=== PATIENT | male | born 1975 | race Two or more races ===

== ENCOUNTER → 2024-03-22 | Outpatient (CLI) | payer BC, SELFPAY ==
[2024-03-22 11:08] LABS: Collection Type, Urine Clean Catch
[2024-03-22 11:36] LABS: Basophils % (Auto) 1 % (0-2.5); Eosinophils # (Auto) 0.2 Thou/mm3 (0.0-0.5); Eosinophils % (Auto) 3 % (0-10); Hematocrit 26.7 % (41.0-53.0); Hemoglobin 9.2 g/dL (13.5-16.0); Immature Granulocytes % (Auto) 0 % (0-0); Immature Granulocytes Auto 0.02 Thou/mm3 (0.00-0.00); Lymphocytes # (Auto) 1.4 Thou/mm3 (1.0-4.8); Lymphocytes % (Auto) 22 % (10-50); Mean Corpuscular HGB Conc 34.5 g/dl (31.0-37.0); Mean Corpuscular Hemoglobin 28.2 pg (25.0-35.0); Mean Corpuscular Volume 82 fL (80-100); Monocytes # (Auto) 0.4 Thou/mm3 (0.0-0.8); Monocytes % (Auto) 6 % (0-12); Neutrophils # (Auto) 4.3 Thou/mm3 (1.8-7.7); Neutrophils % (Auto) 69 % (37-80); Nucleated Red Blood Cell % 0 /100 WBC (0); Platelet Count 237 Thou/mm3 (140-440); RDW Standard Deviation 38.6 fL (35.1-43.9); Red Blood Count 3.26 Miln/mm3 (4.50-5.90); White Blood Count 6.3 Thou/mm3 (3.8-10.6)
[2024-03-22 11:44] LABS: Glucose Estimated Average 117 mg/dL (80-131); Hemoglobin A1C 5.7 % Hgb (4.8-6.0)
[2024-03-22 11:47] LABS: Parathyroid Hormone Intact 315.6 pg/ml (18.5-88.0)
[2024-03-22 11:49] LABS: Albumin, Serum 3.6 gm/dL (3.5-5.0); Anion Gap 7 (7-16); BUN/Creatinine Ratio 14 Ratio (12-20); Blood Urea Nitrogen 56 mg/dL (9-23); Calcium 8.4 mg/dL (8.3-10.6); Calcium (Corrected) 8.7 mg/dL (8.5-10.1); Chloride 112 mMol/L (98-107); Creatinine (Component) 4.1 mg/dL (0.6-1.3); Glucose 103 mg/dL (74-106); Osmolality,Calculated 298 (275-295); Potassium 4.8 mMol/L (3.4-5.1); Sodium 142 mMol/L (136-145); eGFR 17 See Note
[2024-03-22 11:51] LABS: Vitamin D 25 Hydroxy Total 17.6 ng/mL (7.3-40.2)
[2024-03-22 11:53] LABS: Amorphous Crystals,Urine Present (Absent); Bacteria,Urine Rare; Bilirubin,Urine Negative (Negative); Blood,Urine 1+ (Negative); Clarity,Urine Clear (Clear/Hazy); Color,Urine Lt-Yellow (Lt Yel-Yel); Glucose, Urine Trace (Negative); Ketones,Urine Negative (Negative); Leukocyte Esterase,Urine Negative (Negative); Nitrite,Urine Negative (Negative); PH,Urine 6.5 (5.0-7.0); Protein,Urine 3+ (Neg - Trace); RBC,Urine 5 /hpf (0-3); Specific Gravity,Urine 1.013 (1.001-1.035); Squamous Epithelial Cell,Urine 3 /hpf (0-5); Urobilinogen,Urine Negative mg/dL (0.0-1.0); WBC,Urine 16 /hpf (0-5)
== END | disposition home or self-care (01) ==
PROVIDERS: PCP Internal Medicine; Referring Provider Internal Medicine Nephrology; Visit Provider Internal Medicine Nephrology
DX: N18.4 Chronic kidney disease, stage 4 (severe) (principal); E55.9 Vitamin D deficiency, unspecified
CPT/HCPCS: 36415; 80069; 81001; 82306; 83036; 83970; 85025

== ENCOUNTER → 2024-05-26 | Outpatient (CLI) | payer BC, SELFPAY ==
[2024-05-26 10:41] LABS: Vitamin D 25 Hydroxy Total 15.6 ng/mL (7.3-40.2)
[2024-05-26 10:42] LABS: Basophils % (Auto) 1 % (0-2.5); Eosinophils # (Auto) 0.2 Thou/mm3 (0.0-0.5); Eosinophils % (Auto) 3 % (0-10); Hematocrit 28.2 % (41.0-53.0); Hemoglobin 9.9 g/dL (13.5-16.0); Immature Granulocytes % (Auto) 1 % (0-0); Immature Granulocytes Auto 0.04 Thou/mm3 (0.00-0.00); Lymphocytes # (Auto) 1.2 Thou/mm3 (1.0-4.8); Lymphocytes % (Auto) 19 % (10-50); Mean Corpuscular HGB Conc 35.1 g/dl (31.0-37.0); Mean Corpuscular Hemoglobin 28.1 pg (25.0-35.0); Mean Corpuscular Volume 80 fL (80-100); Monocytes # (Auto) 0.4 Thou/mm3 (0.0-0.8); Monocytes % (Auto) 7 % (0-12); Neutrophils # (Auto) 4.3 Thou/mm3 (1.8-7.7); Neutrophils % (Auto) 70 % (37-80); Nucleated Red Blood Cell % 0 /100 WBC (0); Platelet Count 254 Thou/mm3 (140-440); RDW Standard Deviation 36.8 fL (35.1-43.9); Red Blood Count 3.52 Miln/mm3 (4.50-5.90); White Blood Count 6.2 Thou/mm3 (3.8-10.6)
[2024-05-26 10:43] LABS: Glucose Estimated Average 120 mg/dL (80-131); Hemoglobin A1C 5.8 % Hgb (4.8-6.0)
[2024-05-26 11:18] LABS: Alanine Aminotransferase 19 U/L (10-49); Albumin, Serum 3.8 gm/dL (3.5-5.0); Albumin/Globulin Ratio 1.7 (1.2-2.2); Alkaline Phosphatase 89 U/L (46-116); Anion Gap 9 (7-16); Aspartate Amino Transferase 21 U/L (0-34); BUN/Creatinine Ratio 14 Ratio (12-20); Bilirubin,Total 0.4 mg/dL (0.3-1.2); Blood Urea Nitrogen 89 mg/dL (9-23); Calcium 7.4 mg/dL (8.3-10.6); Calcium (Corrected) 7.6 mg/dL (8.5-10.1); Carbon Dioxide 19.1 mMol/L (20.0-31.0); Cardiac Risk Estimate 5.8 RATIO (4.0-6.7); Chloride 114 mMol/L (98-107); Cholesterol 233 mg/dL (132-200); Creatinine (Component) 6.5 mg/dL (0.6-1.3); Free T4 (Free Thyroxine) 0.94 ng/dL (0.89-1.76); Globulin 2.2 gm/dL (2.3-3.5); Glucose 94 mg/dL (74-106); HDL Cholesterol 40 mg/dL (40-60); LDL Cholesterol,Calculated 161 mg/dL (0-130); Osmolality,Calculated 310 (275-295); Potassium 4.9 mMol/L (3.4-5.1); Sodium 142 mMol/L (136-145); Thyroid Stimulating Hormone 3.45 uIU/mL (0.55-4.78); Triglycerides 160 mg/dL (30-150); eGFR 10 See Note
== END | disposition home or self-care (01) ==
PROVIDERS: PCP Internal Medicine; Referring Provider Internal Medicine; Visit Provider Internal Medicine
DX: Z00.00 Encounter for general adult medical examination without abnormal findings (principal); E55.9 Vitamin D deficiency, unspecified
CPT/HCPCS: 36415; 80053; 80061; 82306; 83036; 84439; 84443; 85025

== ENCOUNTER 2024-07-01 02:10 | Emergency (ER) | payer BC, SELFPAY ==
[2024-07-01 02:11] VITALS: BMI 49.3
--- NOTE | 2024-07-01 02:13 | EKG_ITS ---
[facility] Test Date: 2024-07-01 Pat Name: DILEEP ACOSTA Department: Room: - Gender: Male Appointment Coordinator: : 1975 Requested By: Donnie Rivera Order Number: [id number] Reading MD: Donnie Rivera Measurements Intervals [place] Rate: 62 P: 19 PA: 193 QRS: -57 QRSD: 175 T: 30 QT: 484 QTc: 495 Interpretive Statements SINUS RHYTHM RIGHT BUNDLE BRANCH BLOCK [120+ ms QRS DURATION, UPRIGHT V1, 40+ ms S IN I/aVL/V4/V5/V6] LEFT ANTERIOR FASCICULAR BLOCK [QRS AXIS <= -45, QR IN I, RS IN II] POSSIBLE ANTERIOR MYOCARDIAL INFARCTION , OF INDETERMINATE AGE [30 ms Q WAVE IN V3/V4, OR R < 0.2 mV IN V4] Compared to ECG 07/21/2020 14:16:26 No significant changes /store/S0/[id number]
[2024-07-01 02:33] VITALS: BP 131/78; PULSE 64; RESP 18; TEMP 36.9; O2SAT 96
--- NOTE | 2024-07-01 03:19 | EDRME_ITS ---
Rapid Medical Screening Exam [facility] Arrival date/time: 07/01/24 02:10 49M with history of HTN, DM, drug-induced CHF and CKD presents to ED with episode of feeling like he's dying, when he woke up. Patient's stated he yelled the word no, in his sleep. Patient states he no longer has any symptoms. made him come. Chief Complaint: General Adult/Misc Complain Vital signs: Vital Signs Temperature 98.4 F 07/01/24 02:33 Pulse Rate 64 07/01/24 02:33 Respiratory Rate 18 07/01/24 02:33 Blood Pressure 131/78 H 07/01/24 02:33 Pulse Oximetry (%) 96 07/01/24 02:33 Oxygen Delivery Method Room Air 07/01/24 02:33
[2024-07-01 03:32] LABS: Collection Type, Urine Clean Catch
[2024-07-01 03:33] LABS: Basophils # (Auto) 0.1 Thou/mm3 (0.0-0.2); Basophils % (Auto) 1 % (0-2.5); Eosinophils # (Auto) 0.4 Thou/mm3 (0.0-0.5); Eosinophils % (Auto) 4 % (0-10); Hematocrit 27.2 % (41.0-53.0); Hemoglobin 9.7 g/dL (13.5-16.0); Immature Granulocytes % (Auto) 0 % (0-0); Immature Granulocytes Auto 0.03 Thou/mm3 (0.00-0.00); Lymphocytes # (Auto) 1.9 Thou/mm3 (1.0-4.8); Lymphocytes % (Auto) 23 % (10-50); Mean Corpuscular HGB Conc 35.7 g/dl (31.0-37.0); Mean Corpuscular Hemoglobin 28.4 pg (25.0-35.0); Mean Corpuscular Volume 80 fL (80-100); Monocytes # (Auto) 0.6 Thou/mm3 (0.0-0.8); Monocytes % (Auto) 7 % (0-12); Neutrophils # (Auto) 5.2 Thou/mm3 (1.8-7.7); Neutrophils % (Auto) 64 % (37-80); Nucleated Red Blood Cell % 0 /100 WBC (0); Platelet Count 226 Thou/mm3 (140-440); RDW Standard Deviation 36.7 fL (35.1-43.9); Red Blood Count 3.42 Miln/mm3 (4.50-5.90); White Blood Count 8.1 Thou/mm3 (3.8-10.6)
[2024-07-01 03:38] LABS: Bilirubin,Urine Negative (Negative); Blood,Urine 1+ (Negative); Clarity,Urine Clear (Clear/Hazy); Color,Urine Colorless (Lt Yel-Yel); Glucose, Urine 4+ (Negative); Ketones,Urine Negative (Negative); Leukocyte Esterase,Urine Negative (Negative); Nitrite,Urine Negative (Negative); PH,Urine 6.5 (5.0-7.0); Protein,Urine 3+ (Neg - Trace); RBC,Urine 4 /hpf (0-3); Squamous Epithelial Cell,Urine 2 /hpf (0-5); Urobilinogen,Urine Negative mg/dL (0.0-1.0); WBC,Urine 19 /hpf (0-5)
[2024-07-01 03:44] LABS: Amphetamine/Methamp Scrn,U Negative (Negative); Barbiturate Screen,Urine Negative (Negative); Benzodiazepines Screen,Urine Negative (Negative); Benzoylecgonine Screen, Ur Negative (Negative); Fentanyl Screen,Urine Negative (Negative); Opiate Screen,Urine Negative (Negative); THC Screen,Urine Negative (Negative)
[2024-07-01 04:07] LABS: Alanine Aminotransferase 14 U/L (10-49); Albumin, Serum 3.8 gm/dL (3.5-5.0); Albumin/Globulin Ratio 1.5 (1.2-2.2); Alkaline Phosphatase 73 U/L (46-116); Anion Gap 10 (7-16); Aspartate Amino Transferase 11 U/L (0-34); BUN/Creatinine Ratio 13 Ratio (12-20); Bilirubin,Total 0.5 mg/dL (0.3-1.2); Blood Urea Nitrogen 90 mg/dL (9-23); Calcium 8.8 mg/dL (8.3-10.6); Carbon Dioxide 24.2 mMol/L (20.0-31.0); Chloride 102 mMol/L (98-107); Creatinine (Component) 6.9 mg/dL (0.6-1.3); Estimated Creatinine Clearance 19.3 mL/min (>60); Globulin 2.6 gm/dL (2.3-3.5); Glucose 258 mg/dL (74-106); Osmolality,Calculated 308 (275-295); Potassium 4.5 mMol/L (3.4-5.1); Sodium 136 mMol/L (136-145); Total Protein 6.4 gm/dL (5.7-8.2); Troponin I < 0.020 ng/mL (0.0-0.045); eGFR 9 See Note
[2024-07-01 05:43] VITALS: BP 127/73; PULSE 65; RESP 17; TEMP 36.9; O2SAT 96
--- NOTE | 2024-07-01 07:50 | PC.NURSE ---
PT comes in from home stating he woke up from his sleep in a panic and feels a little off , pt does where a cpap machine, but has been feeling a little more tired than usual this week. No signs of distress at this time, at bed side
--- NOTE | 2024-07-01 08:32 | PD.EDADULT ---
ED General RME/HPI General Chief complaint: General Adult/Misc Complain Stated complaint: FEELS SOMETHINGS OFF . Time Seen by Provider: 07/01/24 07:53 Arrival date/time: 07/01/24 02:10 RME / HPI RME / HPI narrative: 07/01/24 02:10 49M with history of HTN, DM, drug-induced CHF and CKD presents to ED with episode of feeling like he's dying, when he woke up. Patient's stated he yelled the word no, in his sleep. Patient states he no longer has any symptoms. made him come. 49-year-old male with a history of obstructive sleep apnea on CPAP, who was awoken by an episode of a sense of impending doom. is there noticed that he had an apneic episode while he was on the CPAP and then woke up in a panic. He denies symptoms of headache chest pain or shortness of breath at that time. He has a history of chronic renal disease and they were concerned that there was something wrong with a kidney therefore comes the emergency department for assessment. He is otherwise asymptomatic now. Related Data Home Medications ?Medication ?Instructions ?Recorded ?Confirmed carvedilol 25 mg tablet 25 mg PO QDAY 07/13/20 07/01/24 calcitriol 0.5 mcg capsule 0.5 mcg PO .3xweekly 07/01/24 07/01/24 calcium acetate(phosphat bind) 667 1,334 mg PO TID 07/01/24 07/01/24 mg capsule dapagliflozin propanediol 5 mg 5 mg PO QDAY 07/01/24 07/01/24 tablet (Farxiga) ferrous sulfate 325 mg (65 mg 325 mg PO DAILY 07/01/24 07/01/24 iron) tablet losartan 25 mg tablet 25 mg PO DAILY 07/01/24 07/01/24 metolazone 5 mg tablet 5 mg PO DAILY 07/01/24 07/01/24 rosuvastatin 20 mg tablet 20 mg PO DAILY 07/01/24 07/01/24 Previous Rx's ?Medication ?Instructions ?Recorded amlodipine 10 mg tablet 10 mg PO QDAY #30 tabs 06/22/20 patiromer calcium sorbitex 8.4 16.8 g PO 2 X WEEKLY #30 ea 07/15/20 gram oral powder packet (Veltassa) Allergies Allergy/AdvReac Type Severity Reaction Status Date / Time No Known Allergies Allergy Verified 07/01/24 02:14 Review of Systems Review of Systems Systems Reviewed: All systems reviewed, normal except as documented ED Exam Narrative Physical exam: GENERAL APPEARANCE: AxOx4, generally well-appearing, no acute distress. HEENT: NC, AT. MMM. EOMI, clear conjunctiva, oropharynx clear. HEART: Normal rate and regular rhythm, normal S1/S1, no m/r/g LUNGS: CTAB, moving air well. No crackles or wheezes are heard. ABDOMEN: Soft, nontender, nondistended with good bowel sounds heard. EXTREMITIES: Without cyanosis, clubbing or edema. NEUROLOGICAL: Grossly nonfocal. Alert and oriented, moving all 4 extremities. CN not formally tested but appear grossly intact. Observed to ambulate with normal gait. Course Quality Measures none Orders Category Date Time Status Blood glucose [Bedside Blood Glucose] NOW Care 07/01/24 02:13 Active EKG (ED ONLY) *Do not use* NOW Care 07/01/24 02:13 Completed EKG (ED Only) Stat Exams 07/01/24 02:13 Draft CBC Stat Lab 07/01/24 03:27 Completed Comprehensive Metabolic Panel Stat Lab 07/01/24 03:27 Completed Drug Screen,Urine Stat Lab 07/01/24 03:20 Completed Troponin I Stat Lab 07/01/24 03:27 Completed Urinalysis Stat Lab 07/01/24 03:20 Completed Vital Signs Vital signs: Vital Signs Temperature 98.4 F 07/01/24 02:33 Pulse Rate 64 07/01/24 02:33 Respiratory Rate 18 07/01/24 02:33 Blood Pressure 131/78 H 07/01/24 02:33 Pulse Oximetry (%) 96 07/01/24 02:33 Oxygen Delivery Method Room Air 07/01/24 02:33 Procedures -ED EKG Interpretation #1: Date of EK07/01/24 Time of EK:29 Rate: 62 Interpretation: Interpreted by me EKG Impression: Normal sinus rhythm, No acute ST-T changes, Bundle branch block and Normal axis MDM Patient data External records reviewed:: [facility] previous records Clinical information provided by:: patient and spouse Social determinants that could affect healthcare access:: none Patient has the following chronic illnesses:: Chronic kidney disease, obstructive sleep apnea How is presenting disease/condition affected by chronic disease/condition?: exacerbated by Evaluation data The following diagnostics were reviewed and interpreted by me:: lab results and EKG tracing(s) Lab and/or radiology exams considered but not ordered:: None Interpretation Summary: As per narrative Medications Medications considered but not ordered:: None Medication administrations:: None Consultations Consultation(s) initiated? (list below): No Diagnosis Differential Diagnosis ED Complaint MDM: Panic attack, brief episode of hypoxia, GERD Most likely diagnosis given after review of the tests above:: See below Admission Indicated Admission indicated?: not indicated Explain why admission is indicated or not indicated:: As per narrative Admission Request Was there a request for admission?: No Disposition Plan Disposition Plan: Discharge Discharge Attestation Discharge Attestation: The patient and all family members were given an opportunity to ask questions and understood the discharge instructions. Discharge instructions specifically effects, indications for sooner follow up or return to the emergency department, and the expected course of current diagnosis. Patient condition: Stable Medical Decision Making MDM Narrative MDM Narrative: Mr. Freeman presents to the emergency department with episode of panic while he was sleeping. There is the possibility of an episode of apnea as he has a history of obstructive sleep apnea. This could possibly result in an episode of hypoxia which would induce anxiety. Patient otherwise is well-appearing, stable vital signs without further respiratory distress or signs of hypoxia. Patient is low risk and is appropriate for outpatient follow-up. Laboratory testing and EKG were sent via the RME process which shows no acute findings. It is significant for a creatinine of 6 with normal electrolytes. On review of his electronic medical record this is within range of his baseline creatinine. He in fact has an appointment with his tongue and quarter stitcher, Dr Aaron to discuss possible initiation of peritoneal dialysis. I reviewed these results with him in order to add data for his discussion with Dr Aaron. Differential Diagnosis Differential Diagnosis: Panic attack, brief episode of hypoxia, GERD Lab Data 07/01/24 03:27 07/01/24 03:27 Labs: Lab Results 07/01/24 07/01/24 Range/Units 03: 03: WBC 8.1 (3.8-10.6) Thou/mm3 RBC 3.42 L (4.50-5.90) Miln/mm3 Hgb 9.7 L (13.5-16.0) g/dL Hct 27.2 L (41.0-53.0) % MCV 80 (80-100) fL MCH 28.4 (25.0-35.0) pg MCHC 35.7 (31.0-37.0) g/dl RDW Std Deviation 36.7 (35.1-43.9) fL Plt Count 226 (140-440) Thou/mm3 Neut % (Auto) 64 (37-80) % Lymph % (Auto) 23 (10-50) % [place] % (Auto) 7 (0-12) % Eos % (Auto) 4 (0-10) % Baso % (Auto) 1 (0-2.5) % Neut # (Auto) 5.2 (1.8-7.7) Thou/mm3 Lymph # (Auto) 1.9 (1.0-4.8) Thou/mm3 [place] # (Auto) 0.6 (0.0-0.8) Thou/mm3 Eos # (Auto) 0.4 (0.0-0.5) Thou/mm3 Baso # (Auto) 0.1 (0.0-0.2) Thou/mm3 Immature Gran # (Auto) 0.03 H (0.00-0.00) Thou/mm3 Absolute Nucleated RBC 0.00 (0.00-0.00) Thou/mm3 Immature Gran % 0 (0-0) % Nucleated RBC % 0 (0) /100 WBC Sodium 136 (136-145) mMol/L Potassium 4.5 (3.4-5.1) mMol/L Chloride 102 (98-107) mMol/L Carbon Dioxide 24.2 (20.0-31.0) mMol/L Anion Gap 10 (7-16) BUN 90 H (9-23) mg/dL Creatinine 6.9 H* (0.6-1.3) mg/dL Estim Creat Clear Calc 19.3 L (>60) mL/min eGFR 9 L* (60 - ) See Note BUN/Creatinine Ratio 13 (12-20) Ratio Glucose 258 H (74-106) mg/dL Calculated Osmolality 308 H (275-295) Calcium 8.8 (8.3-10.6) mg/dL Corrected Calcium 9.0 (8.5-10.1) mg/dL Total Bilirubin 0.5 (0.3-1.2) mg/dL AST 11 (0-34) U/L ALT 14 (10-49) U/L Alkaline Phosphatase 73 (46-116) U/L Troponin I < 0.020 (0.0-0.045) ng/mL Total Protein 6.4 (5.7-8.2) gm/dL Albumin 3.8 (3.5-5.0) gm/dL Globulin 2.6 (2.3-3.5) gm/dL Albumin/Globulin Ratio 1.5 (1.2-2.2) Ur Collection Type Clean Catch Urine Color Colorless A (Lt Yel-Yel) Urine Clarity Clear (Clear/Hazy) Urine pH 6.5 (5.0-7.0) Ur Specific [place] 1.010 (1.001-1.035) Urine Protein 3+ A (Neg - Trace) Urine Glucose (UA) 4+ A (Negative) Urine Ketones Negative (Negative) Urine Blood 1+ A (Negative) Urine Nitrite Negative (Negative) Urine Bilirubin Negative (Negative) Urine Urobilinogen (Auto) Negative (0.0-1.0) mg/dL Ur Leukocyte Esterase Negative (Negative) Urine RBC 4 H (0-3) /hpf Urine WBC 19 H (0-5) /hpf Ur Squamous Epith Cells 2 (0-5) /hpf Urine Bacteria None (None) Urine Opiates Screen Negative (Negative) Urine Fentanyl Screen Negative (Negative) Ur Barbiturates Screen Negative (Negative) U Amphetamin/Meth Scrn Negative (Negative) U Benzodiazepines Scrn Negative (Negative) U Cocaine Metab Screen Negative (Negative) U Marijuana (THC) Screen Negative (Negative) Discharge Plan Plan Patient Disposition: HOME (Self Care) Prescriptions/Referrals Prescriptions/Med Rec: No Action amlodipine 10 mg tablet 10 mg PO QDAY Qty: 30 0RF carvedilol 25 mg Tablet 25 mg PO QDAY Veltassa 8.4 gram Powder In Packet 16.8 g PO 2 X WEEKLY Qty: 30 0RF calcium acetate(phosphat bind) 667 mg capsule 1,334 mg PO TID Patient Comments: 2 CAPSULE WITH MEALS ORALLY THREE TIMES A DAY 30 DAYS losartan 25 mg tablet 25 mg PO DAILY Patient Comments: TAKE 1 TABLET BY MOUTH EVERY DAY FOR 30 DAYS calcitriol 0.5 mcg capsule 0.5 mcg PO .3xweekly Patient Comments: 1 CAPSULE BY MOUTH THREE TIMES A WEEK rosuvastatin 20 mg tablet 20 mg PO DAILY Patient Comments: TAKE 1 TABLET BY MOUTH EVERY DAY FOR 30 DAYS metolazone 5 mg tablet 5 mg PO DAILY ferrous sulfate 325 mg (65 mg iron) tablet 325 mg PO DAILY Patient Comments: TAKE 1 TABLET BY MOUTH THREE TIMES A DAY FOR 30 DAYS dapagliflozin propanediol [Farxiga] 5 mg tablet 5 mg PO QDAY Referrals: Martin Velasquez MD [Primary Care Provider] - In 1 week Problem List Clinical Impression: Panic attack, Chronic renal disease Patient/Caregiver Discharge Instructions Education Materials: ED Anxiety Reaction, ED Chronic Kidney Disease (CKD) Additional Instructions: Follow-up with your tongue and quarter stitcher as planned. You can return to the emergency department sooner symptoms worsen or if notes any new or concerning issues. It is important to continue wearing your CPAP at night. Print Language: Sami Stand Alone Forms: Alanna Award Info., Patient Portal Info Letter
== END 2024-07-01 09:20 | disposition home or self-care (01) ==
PROVIDERS: Physician Assistant; Emergency Provider Emergency Medicine; PCP Internal Medicine
DX: F41.0 Panic disorder [episodic paroxysmal anxiety] (principal); N18.9 Chronic kidney disease, unspecified; G47.33 Obstructive sleep apnea (adult) (pediatric); I45.10 Unspecified right bundle-branch block; I44.4 Left anterior fascicular block; E11.22 Type 2 diabetes mellitus with diabetic chronic kidney disease; I50.9 Heart failure, unspecified; I12.9 Hypertensive chronic kidney disease with stage 1 through stage 4 chronic kidney disease, or unspecified chronic kidney disease; Z79.84 Long term (current) use of oral hypoglycemic drugs
CPT/HCPCS: 36415; 80053; 80307; 81001; 84484; 85025; 93005; 99283

== ENCOUNTER → 2024-10-18 | Outpatient (CLI) | payer BC, SELFPAY ==
[2024-10-18 12:19] LABS: Basophils # (Auto) 0.1 Thou/mm3 (0.0-0.2); Basophils % (Auto) 1 % (0-2.5); Eosinophils # (Auto) 0.2 Thou/mm3 (0.0-0.5); Eosinophils % (Auto) 3 % (0-10); Hematocrit 24.8 % (41.0-53.0); Immature Granulocytes Auto 0.06 Thou/mm3 (0.00-0.00); Lymphocytes # (Auto) 1.1 Thou/mm3 (1.0-4.8); Lymphocytes % (Auto) 15 % (10-50); Mean Corpuscular HGB Conc 33.9 g/dl (31.0-37.0); Mean Corpuscular Hemoglobin 28.7 pg (25.0-35.0); Mean Corpuscular Volume 85 fL (80-100); Monocytes # (Auto) 0.5 Thou/mm3 (0.0-0.8); Monocytes % (Auto) 7 % (0-12); Neutrophils # (Auto) 5.4 Thou/mm3 (1.8-7.7); Neutrophils % (Auto) 73 % (37-80); Nucleated Red Blood Cell # 0.00 Thou/mm3 (0.00-0.00); Nucleated Red Blood Cell % 0 /100 WBC (0); Platelet Count 238 Thou/mm3 (140-440); RDW Standard Deviation 39.6 fL (35.1-43.9); Red Blood Count 2.93 Miln/mm3 (4.50-5.90); White Blood Count 7.4 Thou/mm3 (3.8-10.6)
[2024-10-18 12:31] LABS: Hemoglobin 8.4 g/dL (13.5-16.0)
[2024-10-18 12:34] LABS: Albumin, Serum 3.6 gm/dL (3.5-5.0); Anion Gap 14 (7-16); BUN/Creatinine Ratio 9 Ratio (12-20); Blood Urea Nitrogen 70 mg/dL (9-23); Calcium 7.4 mg/dL (8.3-10.6); Calcium (Corrected) 7.7 mg/dL (8.5-10.1); Carbon Dioxide 22.1 mMol/L (20.0-31.0); Chloride 109 mMol/L (98-107); Creatinine (Component) 7.6 mg/dL (0.6-1.3); Glucose 137 mg/dL (74-106); Osmolality,Calculated 311 (275-295); Phosphorous 8.4 mg/dL (2.4-5.1); Potassium 5.4 mMol/L (3.4-5.1); Sodium 145 mMol/L (136-145); eGFR 8 See Note
[2024-10-18 12:50] LABS: Collection Type, Urine Clean Catch
[2024-10-18 13:36] LABS: Bacteria,Urine Rare; Bilirubin,Urine Negative (Negative); Blood,Urine 1+ (Negative); Clarity,Urine Clear (Clear/Hazy); Color,Urine Lt-Yellow (Lt Yel-Yel); Glucose, Urine 1+ (Negative); Ketones,Urine Negative (Negative); Leukocyte Esterase,Urine Negative (Negative); Nitrite,Urine Negative (Negative); PH,Urine 6.5 (5.0-7.0); Protein,Urine 3+ (Neg - Trace); RBC,Urine 3 /hpf (0-3); Specific Gravity,Urine 1.012 (1.001-1.035); Squamous Epithelial Cell,Urine 1 /hpf (0-5); Urobilinogen,Urine Negative mg/dL (0.0-1.0); WBC,Urine 21 /hpf (0-5)
[2024-10-18 13:41] LABS: Culture Indicated,Urine Yes
== END | disposition home or self-care (01) ==
PROVIDERS: PCP Internal Medicine Nephrology; Referring Provider Internal Medicine Nephrology; Visit Provider Internal Medicine Nephrology
DX: N18.4 Chronic kidney disease, stage 4 (severe) (principal); N39.0 Urinary tract infection, site not specified
CPT/HCPCS: 36415; 80069; 81001; 85025; 87086

== ENCOUNTER 2024-11-25 12:21 | Inpatient (IN) | payer BC, SELFPAY ==
[2024-11-25] VITALS (10 sets, daily range): BP systolic 151–191; BP diastolic 74–122; PULSE 74–81; RESP 18–96; TEMP 36.6–37.2; O2SAT 96–98; BMI 51.7; BMI 51.9
--- NOTE | 2024-11-25 13:00 | EKG_ITS ---
[facility] Test Date: 2024-11-25 Pat Name: DILEEP ACOSTA Department: Room: - Gender: Male Rap Artist: : 1975 Requested By: Niko Parikh (KATLYN) Order Number: [id number] Reading MD: Niko Parikh (SOCIAL INSURANCE ADVISER) Measurements Intervals [place] Rate: 76 P: 32 TN: 176 QRS: -62 QRSD: 154 T: 62 QT: 473 QTc: 532 Interpretive Statements SINUS RHYTHM RIGHT BUNDLE BRANCH BLOCK [120+ ms QRS DURATION, UPRIGHT V1, 40+ ms S IN I/aVL/V4/V5/V6] LEFT ANTERIOR FASCICULAR BLOCK [QRS AXIS <= -45, QR IN I, RS IN II] POSSIBLE ANTERIOR MYOCARDIAL INFARCTION , OF INDETERMINATE AGE [30 ms Q WAVE IN V3/V4, OR R < 0.2 mV IN V4] Compared to ECG 07/01/2024 02:29:54 No significant changes /store/S0/[id number]/[id number].pdf
--- NOTE | 2024-11-25 13:00 | XR_ITS ---
Examination: PA lateral chest 2 views TECHNIQUE: Upright PA lateral chest 2 views Date and time: November 25, 2024 1311 hours Comparison June 21, 2020 INDICATIONS: Shortness of breath today beginning one week ago FINDINGS: Diffuse significant right lung pneumonia Mild prominence left ventricle The osseous structures are intact IMPRESSION: Diffuse significant right lung pneumonia
--- NOTE | 2024-11-25 13:06 | PD.EDSOB ---
ED SOB =RME/HPI General Chief Complaint: Shortness of Breath/Dyspnea Stated Complaint: SOB X1 week, weak, no energy Time Seen by Provider: 11/25/24 13:00 Arrival date/time: 11/25/24 12:21 RME / HPI RME / HPI Narrative: 49 male patient with significant history of diabetes mellitus, hypertension, chronic kidney disease, not taking any medication, came in for evaluation regarding worsening shortness of breath, dyspnea on exertion, dizziness, palpitation especially on exertion and activity. Patient denies any cough. Denies any fever patient called her label stitcher, Dr Aaron, and was advised to come here for further evaluation. Patient is supposed to be having peritoneal dialysis. Related Data Home Medications ?Medication ?Instructions ?Recorded ?Confirmed carvedilol 25 mg tablet 25 mg PO QDAY 07/13/20 07/01/24 calcitriol 0.5 mcg capsule 0.5 mcg PO .3xweekly 07/01/24 07/01/24 calcium acetate(phosphat bind) 667 1,334 mg PO TID 07/01/24 07/01/24 mg capsule dapagliflozin propanediol 5 mg 5 mg PO QDAY 07/01/24 07/01/24 tablet (Farxiga) ferrous sulfate 325 mg (65 mg 325 mg PO DAILY 07/01/24 07/01/24 iron) tablet losartan 25 mg tablet 25 mg PO DAILY 07/01/24 07/01/24 metolazone 5 mg tablet 5 mg PO DAILY 07/01/24 07/01/24 rosuvastatin 20 mg tablet 20 mg PO DAILY 07/01/24 07/01/24 Previous Rx's ?Medication ?Instructions ?Recorded amlodipine 10 mg tablet 10 mg PO QDAY #30 tabs 06/22/20 patiromer calcium sorbitex 8.4 16.8 g PO 2 X WEEKLY #30 ea 07/15/20 gram oral powder packet (Veltassa) Allergies Allergy/AdvReac Type Severity Reaction Status Date / Time No Known Allergies Allergy Verified 11/25/24 12:25 Review of Systems Review of Systems Narrative Review of Systems: Review of system reviewed and within normal limits except mentioned in HPI ED Exam Narrative Physical exam: VITAL SIGNS: Reviewed. GENERAL APPEARANCE: Alert and interactive, follows commands, no acute distress, morbidly obese HEAD AND FACE: Non-traumatic. ENT: PERRL, pale conjunctiva, eyelid no trauma, Mucous membrane moist. NECK: Supple, nontender, no nuchal rigidity. CHEST: No tenderness, no crepitus, no paradoxical movement, no retractions. LUNGS: Clear, well ventilated, symmetric, no rales, no wheezing, no ronchi, no stridor, good breath sounds bilaterally. HEART: Regular rate, regular rhythm, no murmur, no gallops. ABDOMEN: Soft, positive bowel sounds, nondistended, no guarding, nontender, no rebound, no masses, RECTAL: Deferred. GENITAL: Deferred. NEUROLOGICAL: Gross motor function intact sensory function intact, Appropriate for age. MUSCULOSKELETAL: low back nontender, full range of motion. EXTREMITIES: Nontender, full range of motion. SKIN: Color pale, dry, no rash, no lacerations, no abrasions, no contusions. LYMPHATICS: Deferred. Course Quality Measures none Orders Category Date Time Status Admit to Inpatient Status Routine Admission 11/25/24 17:37 Active Patient Condition Routine Admission 11/25/24 17:37 Ordered Activity as Tolerated Routine Care 11/25/24 17:59 Ordered Bedside COVID-19 Antigen Test NOW Care 11/25/24 13:00 Active Bedside COVID-19 Antigen Test NOW Care 11/25/24 17:50 Completed Bedside Influenza A&B Antigen Test NOW Care 11/25/24 13:00 Completed COVID-19 Screening Questionnaire NOW Care 11/25/24 17:00 Active Decision to Admit X1 Care 11/25/24 17:00 Completed EKG (ED ONLY) *Do not use* NOW Care 11/25/24 13:01 Completed Insert IV NOW Care 11/25/24 17:48 Active Notify provider NEEDED Care 11/25/24 17:37 Active Notify provider NEEDED Care 11/25/24 17:58 Active Obtain weight daily Care 11/25/24 17:59 Active Occult Blood,Stool (Nursing) ONCE Care 11/25/24 16:07 Active Strict Intake and Output Routine Care 11/25/24 17:59 Ordered Consult to Nephrology Stat Cons 11/25/24 16:56 Ordered EKG (ED Only) Stat Exams 11/25/24 13:00 Draft XR chest 2V Stat Exams 11/25/24 13:00 Completed Blood Culture (Lab) Stat Lab 11/25/24 13:50 Received CBC AM DRAW Lab 11/26/24 05:00 Ordered CBC AM DRAW Lab 11/27/24 05:00 Ordered CBC AM DRAW Lab 11/28/24 05:00 Ordered CBC Stat Lab 11/25/24 13:50 Completed Comprehensive Metabolic Panel Stat Lab 11/25/24 13:50 Completed HIV (1&2) Antibody Rapid Stat Lab 11/25/24 13:50 Completed Hepatitis Acute Panel Stat Lab 11/25/24 13:50 Completed Lipid Panel AM DRAW Lab 11/26/24 05:00 Ordered Magnesium AM DRAW Lab 11/26/24 05:00 Ordered Magnesium AM DRAW Lab 11/27/24 05:00 Ordered Magnesium AM DRAW Lab 11/28/24 05:00 Ordered PT [Prothrombin Time with INR] Stat Lab 11/25/24 13:50 Completed PTT [Partial Thromboplastin Time] Stat Lab 11/25/24 13:50 Completed Partial Thromboplastin Time AM DRAW Lab 11/26/24 05:00 Or[address] Review Blood Smear Stat Lab 11/25/24 13:50 Completed Phosphorous AM DRAW Lab 11/26/24 05:00 Ordered Phosphorous AM DRAW Lab 11/27/24 05:00 Ordered Phosphorous AM DRAW Lab 11/28/24 05:00 Ordered Prothrombin Time with INR AM DRAW Lab 11/26/24 05:00 Ordered Troponin I Stat Lab 11/25/24 13:50 Completed Type and Screen Stat Lab 11/25/24 16:28 Results Urinalysis Stat Lab 11/25/24 14:37 Completed Urine Culture Stat Lab 11/25/24 14:37 Received prbc [Red Blood Cells] Stat Lab 11/25/24 16:28 Results Acetaminophen Tab [Tylenol Tab] Med 11/25/24 17:58 Active 650 mg PO Q6H PRN Senna [Senokot] Med 11/25/24 17:58 Active 1 tab PO QDAY PRN hydrALAZINE HCL [Apresoline] Med 11/25/24 13:06 Discontinued 50 mg PO X1 ONE Code Status Routine Oth 11/25/24 17:58 Ordered Oxygen Delivery DAILY RT 11/25/24 17:59 Active Vital Signs Vital signs: Vital Signs Temperature 99.0 F 11/25/24 12:55 Pulse Rate 75 11/25/24 12:55 Respiratory Rate 18 11/25/24 12:55 Blood Pressure 191/93 H 08/14/25 12:55 Pulse Oximetry (%) 96 11/25/24 12:55 Oxygen Delivery Method Room Air 11/25/24 12:55 Shortness of Breath / Dyspnea [facility] Narrative [facility] Narrative:: 49 male patient with significant history of diabetes mellitus, hypertension, chronic kidney disease, not taking any medication, came in for evaluation regarding worsening shortness of breath, dyspnea on exertion, dizziness, palpitation especially on exertion and activity. Patient denies any cough. Denies any fever patient called her label stitcher, Dr Aaron, and was advised to come here for further evaluation. Patient is supposed to be having peritoneal dialysis. CBC significant for hemoglobin of 6.7, hematocrit of 20. Potassium of 5.2 carbon dioxide of 14.9 anion gap of 18 BUN of 106 creatinine 12.5 calcium 6.5 corrected calcium 6.6 troponin 0.072 urinalysis contaminated, no UTI. Chest x-ray showed diffuse pneumonia in the right EKG showed normal sinus rhythm, ventricular rate of 76 bpm, no ST segment elevation depression noted. Spoke with Dr Aaron, patient's label stitcher, who examined the patient in the emergency room, for hemodialysis tomorrow. Case discussed with hospitalist who admitted the patient. Patient data External records reviewed:: None Clinical information provided by:: patient Social determinants that could affect healthcare access:: none Patient has the following chronic illnesses:: Hypertension diabetes mellitus, ESRD How is presenting disease/condition affected by chronic disease/condition?: exacerbated by Evaluation data The following diagnostics were reviewed and interpreted by me:: lab results, radiology exam(s) and EKG tracing(s) Lab and/or radiology exams considered but not ordered:: None Interpretation Summary: See results [facility] Medications / Prescriptions Medications or Prescriptions considered but not ordered:: None Medication administrations:: Medication Administration History Acetaminophen (Acetaminophen 325 Mg Tablet) 650 mg PO Q6H PRN PRN Reason: for fever >100.4 or pain 1-3 Stop: 12/25/24 17:57 Hydrocodone Bitart/Acetaminophen (Hydrocodone/Apap 5/325 Tablet) 1 tab PO Q4HR PRN PRN Reason: PAIN SCALE 4-6 (Moderate Stop: 11/30/24 18:08 Albuterol/Ipratropium (Albuterol/Ipratropium (Duoneb) Rt Beryl 3 Ml Nebu) 3 ml INH Q6HRRT PRN PRN Reason: sob Stop: 12/25/24 18:59 Amoxicillin/Clavulanate Potassium (Amoxicillin/Pot Clav 875 Tablet) 1 tab PO BID KATHARINA Stop: 12/03/24 08:59 Atorvastatin Calcium (Atorvastatin Calcium 20 Mg Tablet) 40 mg PO HS KATHARINA Stop: 12/25/24 20:59 Azithromycin (Azithromycin 250 Mg Tablet) 500 mg PO QDAY KATHARINA Stop: 12/03/24 08:59 Dextrose (Dextrose 50%-Water Inj 50 Ml Syringe) 25 ml IV Q15MIN PRN PRN Reason: BG 50-70 responsive npo pt Stop: 12/25/24 18:14 Dextrose (Dextrose 50%-Water Inj 50 Ml Syringe) 50 ml IV Q15MIN PRN PRN Reason: BG <50 OR BG <70 & pt unresponsive Stop: 12/25/24 18:14 Glucagon (Glucagon Inj 1 Mg Vial) 1 mg IM Q15MIN PRN PRN Reason: BG <70, and no IV access Calcium Gluconate/Sodium Chloride (Calcium Gluc/Ns 1000mg Ivpb) 1,000 mg in 50 mls @ 50 mls/hr IV X1 ONE Stop: 11/25/24 19:15 Last Admin: 11/25/24 18:42 Dose: 50 mls/hr Documented By: SANDEEP Insulin Human Lispro (Insulin Lispro (Admelog) 1 Unit/0.01 Ml Unit) 0 unit SC [facility]; Protocol Stop: 12/25/24 20:59 Labetalol HCl (Labetalol Inj 5 Mg/Ml Vial 20 Ml) 10 mg IVP Q2H PRN PRN Reason: SBP above 180 Stop: 12/25/24 18:29 Pantoprazole Sodium (Pantoprazole Inj 40 Mg Vial) 40 mg IVP QDAY [facility] Stop: 12/25/24 18:14 Last Admin: 11/25/24 18:38 Dose: 40 mg Documented By: SANDEEP Sennosides (Senna Tablet) 1 tab PO QDAY PRN; Protocol PRN Reason: constipation Stop: 12/25/24 17:57 Discontinued Medications Albuterol (Albuterol Rt 2.5 Mg/3 Ml Nebu) 2.5 mg INH X1 ONE Stop: 11/25/24 18:16 Amoxicillin/Clavulanate Potassium (Amoxicillin/Pot Clav 875 Tablet) 1 tab PO X1 ONE Stop: 11/25/24 18:14 Last Admin: 11/25/24 18:36 Dose: 1 tab Documented By: SANDEEP Azithromycin (Azithromycin 250 Mg Tablet) 500 mg PO X1 ONE Stop: 11/25/24 18:21 Last Admin: 11/25/24 18:37 Dose: 500 mg Documented By: DB Furosemide (Furosemide Inj 10 Mg/Ml 4ml Vial) 40 mg IVP X1 ONE Stop: 11/25/24 18:19 Last Admin: 11/25/24 18:40 Dose: 40 mg Documented By: DB Hydralazine HCl (Hydralazine Hcl 25 Mg Tablet) 50 mg PO X1 ONE Stop: 11/25/24 13:07 Last Admin: 11/25/24 13:54 Dose: 50 mg Documented By: Sodium Bicarbonate (Sodium Bicarb Inj 8.4% 1 Meq/Ml 50 Ml Vial) 50 meq IV X1 ONE Stop: 11/25/24 18:14 Last Admin: 11/25/24 18:39 Dose: 50 meq Documented By: DB Sodium Chloride (Sodium Chloride Rt 10% 15 Ml Nebu) 5 ml INH X1 ONE Stop: 11/25/24 18:04 Augmentin and Zithromax Consultations Consultation(s) initiated? (list below): Yes Consultation #1 (Physician, Specialty, Details): Dr Aaron, label stitcher discussed the case, thank you . Diagnosis Shortness of Breath Differential Diagnosis: congestive heart failure and community acquired pneumonia Most likely diagnosis given after review of the tests above:: Anemia, ESRD pneumonia Admission Indicated Admission indicated?: indicated Admission Request Was there a request for admission?: Yes Admission Attestation Admission request attestation: Discussed case with [Dr Mendoza] from Hospitalist service regarding admission. Discussed patients ED course, exam findings, labs, and radiology results. The Hospitalist [agrees] to accept the patient for admission. Disposition Plan Disposition Plan: Admit Discharge Plan Plan Patient Disposition: Admit Acute Care w/in Hospital Discharge Disposition comment: Stable Problem List Clinical Impression: End-stage renal disease (ESRD), Anemia, PNA (pneumonia)
[2024-11-25 14:36] LABS: Basophils # (Auto) 0.0 Thou/mm3 (0.0-0.2); Basophils % (Auto) 0 % (0-2.5); Eosinophils # (Auto) 0.1 Thou/mm3 (0.0-0.5); Eosinophils % (Auto) 2 % (0-10); Immature Granulocytes Auto 0.05 Thou/mm3 (0.00-0.00); Lymphocytes # (Auto) 0.9 Thou/mm3 (1.0-4.8); Lymphocytes % (Auto) 11 % (10-50); Mean Corpuscular HGB Conc 33.5 g/dl (31.0-37.0); Mean Corpuscular Hemoglobin 28.4 pg (25.0-35.0); Mean Corpuscular Volume 85 fL (80-100); Monocytes # (Auto) 0.6 Thou/mm3 (0.0-0.8); Monocytes % (Auto) 8 % (0-12); Neutrophils # (Auto) 6.3 Thou/mm3 (1.8-7.7); Neutrophils % (Auto) 79 % (37-80); Nucleated Red Blood Cell # 0.00 Thou/mm3 (0.00-0.00); Nucleated Red Blood Cell % 0 /100 WBC (0); Platelet Count 211 Thou/mm3 (140-440); RDW Standard Deviation 39.8 fL (35.1-43.9); Red Blood Count 2.36 Miln/mm3 (4.50-5.90); White Blood Count 8.1 Thou/mm3 (3.8-10.6)
[2024-11-25 14:57] LABS: Hematocrit 20.0 % (41.0-53.0); Hemoglobin 6.7 g/dL (13.5-16.0)
[2024-11-25 15:06] LABS: Collection Type, Urine Clean Catch
[2024-11-25 15:20] LABS: Amorphous Crystals,Urine Present (Absent); Bilirubin,Urine Negative (Negative); Blood,Urine 1+ (Negative); Clarity,Urine Clear (Clear/Hazy); Color,Urine Colorless (Lt Yel-Yel); Glucose, Urine 1+ (Negative); Ketones,Urine Negative (Negative); Leukocyte Esterase,Urine Negative (Negative); Nitrite,Urine Negative (Negative); PH,Urine 6.5 (5.0-7.0); Protein,Urine 3+ (Neg - Trace); RBC,Urine 4 /hpf (0-3); Specific Gravity,Urine 1.011 (1.001-1.035); Squamous Epithelial Cell,Urine 1 /hpf (0-5); Urobilinogen,Urine Negative mg/dL (0.0-1.0); WBC,Urine 20 /hpf (0-5)
[2024-11-25 15:25] LABS: HIV (1&2) Antibody Rapid Non-Reactive
[2024-11-25 15:38] LABS: INR 1.1 (0.9-1.3); Partial Thromboplastin Time 33.0 Seconds (22.0-36.0); Prothrombin Time 11.5 Seconds (9.0-12.2)
[2024-11-25 15:42] LABS: Hepatitis A Antibody IgM Non Reactive (Non React); Hepatitis B Core Antibody IgM Non Reactive (Non React); Hepatitis B Surface Antigen Non Reactive (Non React); Hepatitis C Antibody Non Reactive (Non React)
[2024-11-25 16:03] LABS: Path Review Blood Smear Sent to Pathologist
[2024-11-25 16:25] LABS: Alanine Aminotransferase 8 U/L (10-49); Albumin, Serum 3.9 gm/dL (3.5-5.0); Albumin/Globulin Ratio 1.5 (1.2-2.2); Alkaline Phosphatase 57 U/L (46-116); Anion Gap 18 (7-16); Aspartate Amino Transferase 14 U/L (0-34); Bilirubin,Total 0.4 mg/dL (0.3-1.2); Chloride 107 mMol/L (98-107); Creatinine (Component) 12.5 mg/dL (0.6-1.3); Estimated Creatinine Clearance 10.9 mL/min (>60); Globulin 2.6 gm/dL (2.3-3.5); Glucose 122 mg/dL (74-106); Potassium 5.2 mMol/L (3.4-5.1); Sodium 140 mMol/L (136-145); Total Protein 6.5 gm/dL (5.7-8.2); eGFR 5 See Note
[2024-11-25 16:28] LABS: Calcium 6.5 mg/dL (8.3-10.6); Calcium (Corrected) 6.6 mg/dL (8.5-10.1); Carbon Dioxide 14.9 mMol/L (20.0-31.0)
[2024-11-25 16:29] LABS: Troponin I 0.072 ng/mL (0.0-0.045)
[2024-11-25 16:32] LABS: BUN/Creatinine Ratio 8 Ratio (12-20); Blood Urea Nitrogen 106 mg/dL (9-23); Osmolality,Calculated 313 (275-295)
--- NOTE | 2024-11-25 18:12 | PC.NURSE ---
PER DR. MACKEY PT WILL NOT NEED A BLOOD TRANSFUSION
--- NOTE | 2024-11-25 18:24 | ESHP_ITS ---
<Statement entered by Reji Duke MD - 11/25/24 18:40> I have reviewed the note and agree with the resident's assessment & plan with exceptions as below. I have personally reviewed labs, imaging, home meds/prior records, examined the patient, formulated and discussed management plan with the IM team. Pt examined at bedside today. Pt reports he came to the ED for evaluation of SOB, worse on exertion. He has been trying to get dialysis, however has been having insurance issues, steam and power supervisor, Dr. Aaron. He said he was also going to see Dr. Jorgensen for setting up PD. He says that his most recent A1c is 5.5~. 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 He had a recent fall and has been using a wheel chair due to pain. He sees a color dipper, Dr. Parham for his CHF. He has not been able to take his meds for the past two months because of insurance issues. Spoke with steam and power supervisor, pt will need dialysis tomorrow. Will order renal panel and troponin to trend later. #Acute kidney injury on CKD #Electrolyte derrangements #Anion gap metabolic acidosis DDx: Prerenal versus ATN versus obstructive Likely related to Uremia Calcium 6.6 Plan: ?Nephrology consulted, appreciate recs ?Strict I's and O's ?Lasix 40 mg IV ?Sodium Bicarb 50 mL x1 ?Renal panel 1999 ?IR dialysis cath tomorrow with HD ?Calcium gluconate 1 g and Albuterol x1 #Hypertensive emergency Plan: ? Do not correct systolic blood pressure more than 25% within the first 24 hours ? Labetalol 10 mg IV Q2H PRN for SBP above 180, hold if HR is below 65 #Elevated troponins Slightly elevated, likely demand ischemia NSTEMI type II Plan: Troponin at 2000 #CHF Unsure if it is reduced Configuration Management Architect is Dr. Parham Plan: ?Echo ?Telemetry #Acute blood loss anemia #Symptomatic anemia DDx: GI Bleed, Cancer, chronic anemia, medication induced FOBT: None NSAID use: Unsure Blood thinner use:Unsure Hgb 6.7, however will hold on transfusion due to concern for overload (TACO) Plan: ? Trend CBC ? Iron studies panel with ferritin ? Reticulocyte Count ? Peripheral blood smear ? Transfusion protocol hemoglobin below 7, however will hold at this time due to concern for fluid overload ? Avoiding any NSAIDs ? SCDs ? Protonix 40 mg daily Reji Duke, PGY-2 Internal Medicine Documentation for date of: 11/25/24 HPI History of Present Illness History of present illness: 49 male patient with significant history of DM2(not on insulin), hypertension, chronic kidney disease, not taking any medication, came in for evaluation regarding worsening shortness of breath, dyspnea on exertion, dizziness, palpitation especially on exertion and activity. Upon initial examination patient reports 7 days of loose stools SOB and chest tightness and headache. He had a fever during one of those days and missed one day of work. He has chest tightness with inspiration that he describes as dull, not sharp and not reproducible by palpation. He denies cough but is actively coughing during the exam. He was supposed to start dialysis 2 months ago but had insurance lapses. ED Course Summary: BP: 191/93, HR: 75, RR: 18, T;99F, O2:96% RA. Hydralazine given Patient denied cough and fever. CBC significant for hemoglobin of 6.7, hematocrit of 20. Potassium of 5.2 carbon dioxide of 14.9 anion gap of 18 BUN of 106 creatinine 12.5 calcium 6.5 corrected calcium 6.6 troponin 0.072 urinalysis contaminated, no UTI. Chest x-ray showed diffuse pneumonia in the right. EKG showed normal sinus rhythm, ventricular rate of 76 bpm, no ST segment elevation depression noted. Spoke with Dr Aaron, patient's steam and power supervisor, who examined the patient in the emergency room, for hemodialysis tomorrow. 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 Patient admitted for volume overload most likely 2/2 ESRD plan for HDS and PNA Exam Vital Signs Temp Pulse Resp BP Pulse Ox O2 Del Method 99.0 F 81 18 190/101 H 96 Room Air 11/25/24 12:55 11/25/24 18:03 11/25/24 18:03 11/25/24 18:03 11/25/24 18:03 11/25/24 18:03 Narrative Exam GENERAL APPEARANCE: Alert and interactive, follows commands, no acute distress, morbidly obese HEAD AND FACE: Non-traumatic. ENT: PERRL, pale conjunctiva, eyelid no trauma, Mucous membrane moist. NECK: Supple, nontender, no nuchal rigidity. CHEST: No tenderness, no crepitus, no paradoxical movement, no retractions. LUNGS: Soft crackles left lung base HEART: Regular rate, regular rhythm, no murmur, no gallops. ABDOMEN: Soft, positive bowel sounds, nondistended, no guarding, nontender, no rebound, no masses, RECTAL: Deferred. GENITAL: Deferred. NEUROLOGICAL: Gross motor function intact sensory function intact, Appropriate for age. MUSCULOSKELETAL: low back nontender, full range of motion. EXTREMITIES: Nontender, full range of motion. +2 pitting edema SKIN: Color pale, dry, no rash, no lacerations, no abrasions, no contusions. Results: Labs 11/26/24 04:49 11/26/24 04:49 Labs: Short CBC 11/25/24 Range/Units 13:50 WBC 8.1 (3.8-10.6) Thou/mm3 Hgb 6.7 L* (13.5-16.0) g/dL Hct 20.0 L* (41.0-53.0) % Plt Count 211 (140-440) Thou/mm3 BMP 11/25/24 13:50 Sodium 140 Potassium 5.2 H Chloride 107 Carbon Dioxide 14.9 L* BUN 106 H* Creatinine 12.5 H* Glucose 122 H Calcium 6.5 L* Cardiac Enzymes 11/25/24 Range/Units 13:50 Troponin I 0.072 H* (0.0-0.045) ng/mL Liver Function 11/25/24 Range/Units 13:50 Total Bilirubin 0.4 (0.3-1.2) mg/dL AST 14 (0-34) U/L ALT 8 L (10-49) U/L Alkaline Phosphatase 57 (46-116) U/L Albumin 3.9 (3.5-5.0) gm/dL Urine 11/25/24 Range/Units 14:37 Urine Color Colorless A (Lt Yel-Yel) Urine Clarity Clear (Clear/Hazy) Urine pH 6.5 (5.0-7.0) Ur Specific [place] 1.011 (1.001-1.035) Urine Protein 3+ A (Neg - Trace) Urine Glucose (UA) 1+ A (Negative) Quality Measures Quality Measures VTE prophylaxis (scd) Medications Home Medications and Allergies Home Medications ?Medication ?Instructions ?Recorded ?Confirmed ?Type carvedilol 25 mg tablet 25 mg PO QDAY 07/13/2011/25 History calcitriol 0.5 mcg capsule 0.5 mcg PO .3xweekly 11/25/24 History calcium acetate(phosphat bind) 667 1,334 mg PO TID 11/25/24 History mg capsule dapagliflozin propanediol 5 mg 5 mg PO QDAY 07/01/24 0 11/25/24 History tablet (Farxiga) ferrous sulfate 325 mg (65 mg 325 mg PO DAILY 07/01/24 11/25/24 History iron) tablet losartan 25 mg tablet 25 mg PO DAILY 07/01/2411/12 History metolazone 5 mg tablet 5 mg PO DAILY 07/01/2411/25 History rosuvastatin 20 mg tablet 20 mg PO DAILY 07/01/2411/12 History Allergies Allergy/AdvReac Type Severity Reaction Status Date / Time No Known Allergies Allergy Verified 11/26/24 10:57 Visit Medications Acetaminophen (Acetaminophen 325 Mg Tablet) 650 mg PO Q6H PRN PRN Reason: for fever >100.4 or pain 1-3 Stop: 12/25/24 17:57 Hydrocodone Bitart/Acetaminophen (Hydrocodone/Apap 5/325 Tablet) 1 tab PO Q4HR PRN PRN Reason: PAIN SCALE 4-6 (Moderate Stop: 11/30/24 18:08 Albuterol/Ipratropium (Albuterol/Ipratropium (Duoneb) Rt Beryl 3 Ml Nebu) 3 ml INH Q6HRRT PRN PRN Reason: sob Stop: 12/25/24 18:59 Amoxicillin/Clavulanate Potassium (Amoxicillin/Pot Clav 875 Tablet) 1 tab PO BID KATHARINA Stop: 12/03/24 08:59 Azithromycin (Azithromycin 250 Mg Tablet) 500 mg PO QDAY KATHARINA Stop: 12/03/24 08:59 Dextrose (Dextrose 50%-Water Inj 50 Ml Syringe) 25 ml IV Q15MIN PRN PRN Reason: BG 50-70 responsive npo pt Stop: 12/25/24 18:14 Dextrose (Dextrose 50%-Water Inj 50 Ml Syringe) 50 ml IV Q15MIN PRN PRN Reason: BG <50 OR BG <70 & pt unresponsive Stop: 12/25/24 18:14 Glucagon (Glucagon Inj 1 Mg Vial) 1 mg IM Q15MIN PRN PRN Reason: BG <70, and no IV access Calcium Gluconate/Sodium Chloride (Calcium Gluc/Ns 1000mg Ivpb) 1,000 mg in 50 mls @ 50 mls/hr IV X1 ONE Stop: 11/25/24 19:15 Insulin Human Lispro (Insulin Lispro (Admelog) 1 Unit/0.01 Ml Unit) 0 unit SC [facility]; Protocol Stop: 12/25/24 20:59 Pantoprazole Sodium (Pantoprazole Inj 40 Mg Vial) 40 mg IVP QDAY KATHARINA Stop: 12/25/24 18:14 Sennosides (Senna Tablet) 1 tab PO QDAY PRN; Protocol PRN Reason: constipation Stop: 12/25/24 17:57 Discontinued Medications Albuterol (Albuterol Rt 2.5 Mg/3 Ml Nebu) 2.5 mg INH X1 ONE Stop: 11/25/24 18:16 Amoxicillin/Clavulanate Potassium (Amoxicillin/Pot Clav 875 Tablet) 1 tab PO X1 ONE Stop: 11/25/24 18:14 Azithromycin (Azithromycin 250 Mg Tablet) 500 mg PO X1 ONE Stop: 11/25/24 18:21 Furosemide (Furosemide Inj 10 Mg/Ml 4ml Vial) 40 mg IVP X1 ONE Stop: 11/25/24 18:19 Hydralazine HCl (Hydralazine Hcl 25 Mg Tablet) 50 mg PO X1 ONE Stop: 11/25/24 13:07 Last Admin: 11/25/24 13:54 Dose: 50 mg Sodium Bicarbonate (Sodium Bicarb Inj 8.4% 1 Meq/Ml 50 Ml Vial) 50 meq IV X1 ONE Stop: 11/25/24 18:14 Sodium Chloride (Sodium Chloride Rt 10% 15 Ml Nebu) 5 ml INH X1 ONE Stop: 11/25/24 18:04 Assessment & Plan Plan 49 male patient with significant history of DM2(not on insulin), hypertension, chronic kidney disease, not taking any medication, came in for evaluation regarding worsening shortness of breath, dyspnea on exertion, dizziness, palpitation especially on exertion and activity. Patient is volume overloaded most likely 2/2 to delay in HDS needed for ESRD as evidenced by his renal panel. Also f/t/h PNA on CXR also evidenced by B symptoms on HPI and physical exam. Plan for dialysis, diuresis, electrolyte management of ESRD, and abx for PNA. Will not give pRBCs due to vol overload status despite hgb:6 #ESRD #Vol overload most likley 2/2 no HDS #Hyperkalemia #HTN Patient should have had dialysis had it not been for insurance lapses. EGFR:5, BUN:106, Cr: 12.5, A, K: 5.2. SOB and +2 pitting edema. HTN most likely due to vol overload as well Plan: -labetalol IV 10 mg prn for HTN -Hydralazine given in ED -Plan for HDS tomorrow -Consult nephro -Ca gluconate, NaBicarb given as needed -Furosemide 40mg x1 #Likely PNA ED CXR: diffuse significant LL lung PNA. Crackles in left lung base on physical. patient has viral symptomatology of SOB and cough Plan: -Amox/Clav 875 BID -Aizthro 500mg PO QD - 5 days #Anemia most likely 2/2 vol overload Hgb: 6.7 HCT:20. Difficult to assess etiology with such vol overload. Not giving pRBCs due to vol overload status Plan: -Diurese and reassess with potential for iron panel #Trop:0.072 C/f heart strain. EKG tachy but similar read to baseline Plan: -Monitor serial trops -Lipitor 40mg PO HS #UTI WBC: 20 Plan: -Cross coverage of PNA tx augmentin + Azithro #T2DM (Non-insulin) Plan: -Bedside glucose -ISS -D50 prn hypoglycemia Health Maintenance: DVT prophylaxis: SCDs Diet: Carb consistent Zimmerman: None Lines: PIV Supplemental O2: Nasal cannula CODE STATUS: Full Disposition: Admitted to the hospital for fluid overload and likely PNA Patient seen and reviewed with attending Dr. Sterling and supervising resident Dr. Duke. Note written by Dennis Alexandra MD PGY-1 Attending Provider Attestation/Addendum I have discussed and was present for the essential components of the history, physical examination, diagnosis, and treatment plan with the resident. I agree with the patient's care as documented by the resident and amended herein by me. Jacob Sterling, DO. Although this document has been carefully reviewed, there may still be some phonetic and other typographical errors. These errors are purely grammatical due to imperfections in the software program and should not be construed in any way to compromise the substance of the patient's medical care during this visit.
--- NOTE | 2024-11-25 18:32 | XR_ITS ---
Examination: Foot, left, 3 views Technique: AP, oblique, lateral views foot, 3 views Date and time of exam: November 25, 2024, 1838 hours INDICATIONS: Patient fell 2 days ago and injured the foot, foot pain FINDINGS: Suspicious for fracture distal phalanx fifth digit and distal aspect proximal phalanx fifth digit with tiny opacities in the soft tissues and soft tissue swelling IMPRESSION: Suspicious for fractures proximal and distal phalanges fifth digit
[2024-11-25] MEDS: AMOXICILLIN/POT CLAV 875 TABLET 1 TAB PO (18:36)
[2024-11-25] MEDS: AZITHROMYCIN 250 MG TABLET 500 MG PO (18:37)
[2024-11-25] MEDS: SODIUM BICARB INJ 8.4% 1 mEq/ML 50 ML VIAL 50 MEQ IV (18:39)
[2024-11-25] MEDS: FUROSEMIDE INJ 10 MG/ML 4ML VIAL 40 MG IVP (18:40)
[2024-11-25] MEDS: CALCIUM GLUC/NS 1000MG IVPB 1,000 MG/50 ML BAG 50 MG IV (18:42)
[2024-11-25] MEDS: LABETALOL INJ 5 MG/ML VIAL 20 ML 10 MG IVP (18:55)
[2024-11-25 19:59] LABS: Amphetamine/Methamp Scrn,U Negative (Negative); Barbiturate Screen,Urine Negative (Negative); Benzodiazepines Screen,Urine Negative (Negative); Benzoylecgonine Screen, Ur Negative (Negative); Fentanyl Screen,Urine Negative (Negative); Opiate Screen,Urine Negative (Negative); THC Screen,Urine Negative (Negative)
[2024-11-25] MEDS: ATORVASTATIN CALCIUM 20 MG TABLET 40 MG PO (21:06)
[2024-11-25 21:39] LABS: Albumin, Serum 3.6 gm/dL (3.5-5.0); Anion Gap 18 (7-16); BUN/Creatinine Ratio 9 Ratio (12-20); Blood Urea Nitrogen 109 mg/dL (9-23); Carbon Dioxide 15.4 mMol/L (20.0-31.0); Chloride 107 mMol/L (98-107); Estimated Creatinine Clearance 11.0 mL/min (>60); Glucose 100 mg/dL (74-106); Magnesium 1.4 mg/dL (1.6-2.6); Osmolality,Calculated 313 (275-295); Potassium 5.4 mMol/L (3.4-5.1); Sodium 140 mMol/L (136-145); eGFR 5 See Note
[2024-11-25 22:11] LABS: Calcium 6.5 mg/dL (8.3-10.6)
[2024-11-25 22:12] LABS: Calcium (Corrected) 6.8 mg/dL (8.5-10.1); Creatinine (Component) 12.4 mg/dL (0.6-1.3); Phosphorous 9.7 mg/dL (2.4-5.1); Troponin I 0.070 ng/mL (0.0-0.045)
--- NOTE | 2024-11-25 23:58 | ESCONSULT_ITS ---
RE: DILEEP ACOSTA : 1975 DATE OF CONSULTATION: 11/25/2024 Briefly, he is a 49-year-old -[place] gentleman with past medical history significant for type 2 diabetes since 2016 with proteinuria, hypertension and stage V CKDSince 05/2024, who was supposed to get PD catheter placement for peritoneal dialysis treatments; however, he had a problem with his insurance lately. The patient decided to come over to the hospital as he felt more weak and more swollen. He denies nausea or vomiting. His only complaint is feeling very weak with short of breath. He denies any chest pain. He denies fever as well. PAST MEDICAL HISTORY: Type 2 diabetes, hypertension, advanced CKD, obesity. FAMILY HISTORY: Both parents are on dialysis. 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 No history of smoking. CURRENT MEDICATIONS: 1. Acetaminophen. 2. Albuterol. 3. Augmentin. 4. Azithromycin. 5. Calcium IV 6. Lasix 40 mg IV x1. 7. Lispro sliding scale. 8. Labetalol. ALLERGIES: NO KNOWN DRUG ALLERGIES. PHYSICAL EXAMINATION: GENERAL: He is awake, alert, oriented. VITAL SIGNS: Blood pressure of 180/94, heart rate of 79. HEENT: Anicteric sclerae. Normocephalic. NECK: Supple. No JVD. CHEST AND LUNGS: Normal expression. Decreased breath sounds bilaterally. CARDIAC: Without murmur. ABDOMEN: Obese. EXTREMITIES: Bilateral pitting edema 2-3+. LABORATORY DATA: Hemoglobin 6.7, WBC 8100, platelet count 411,000. Sodium 140, potassium 5.4, chloride 107, CO2 of 15.4, BUN 109, creatinine 12.4, glucose 100, calcium 6.5, creatinine 6.8, phosphorus 9.7. ASSESSMENT: 1. Stage V chronic kidney disease secondary to diabetic nephropathy and hypertensive nephrosclerosis requiring dialysis with uremia and volume overload. 2. Type 2 diabetes. 3. Hypertension. 4. Anemia of chronic kidney disease. 5. Obesity. 6. Hypocalcemia from secondary hyperparathyroidism and hyperphosphatemia PLAN: The patient will be started on dialysis tomorrow. For the time being, I will start the patient on calcium acetate 667 mg two caps p.o. t.i.d. with meals to increase his calcium level. I will also start him on vitamin D3 or calcitriol 0.25 mcg --. Dialysis will be provided in the morning once we have a permanent dialysis catheter in place. Once his BPs go down, then we can start giving him Erythropoietin Stimulating Agent like Retacrit. The patient will have 3 consecutive days of dialysis treatments and after that, will be transitioned to outpatient dialysis care. DT: 22:41:33 TT: 23:08:00 Ref: [id number] - TID: [id number] MTDD
[2024-11-26] VITALS (38 sets, daily range): BP systolic 160–190; BP diastolic 82–100; PULSE 70–90; RESP 10–98; TEMP 36.1–37.2; O2SAT 93–99; BMI 51.9
--- NOTE | 2024-11-26 | XR_ITS ---
Ultrasound-guided needle placement right internal jugular vein Permanent tunneled dialysis catheter insertion, percutaneous Fluoroscopy AP chest, portable, single view. Date and time of procedure: November 26, 2024 0921 hours INDICATIONS: Renal failure on laboratory examination this month, need for stat and long-term dialysis with permanent tunneled dialysis catheter Informed consent provided Technique: A timeout was completed verifying correct patient, procedure, site, positioning, and special equipment if applicable. The patient was placed in a dependent position appropriate for dialysis catheter placement based on the vein to be cannulated. The patient'sright neck was prepped and draped in sterile fashion. Maximum Sterile Barrier Technique used including cap, mask, sterile gown, sterile gloves, and sterile full body drape. If ultrasound technique used: sterile gel and sterile probe covers. Hand Hygiene performed using proper scrub, soap and water, or alcohol-based hand rub. 1% lidocaine was used to anesthetize the surrounding skin area [employer] portable ultrasound apparatus utilized to confirm patency of the right internal jugular vein Utilizing ultrasonographic guidance successful 21-gauge needle puncture into the right internal jugular vein. Ultrasound images were recorded and stored. Vessel micropuncture was performed with 21-gauge needle. 0.18 wire guide is introduced into the vein. 0.18 wire is introduced into the vena cava under fluoroscopy. Subcutaneous tunnel formed in the upper chest. Permanent tunneled dialysis catheter placed in the subcutaneous tunnel. Dilators were introduced over the J-wire guide. Tunneled dialysis catheter is introduced through a dilator with venous sheath into the superior vena cava under fluoroscopic guidance. The catheter is sutured in place to the skin and a sterile dressing applied. Perfusion to the extremity distal to the point of catheter insertion is checked and found to be adequate Attending radiologist was present for the entire procedure Estimated blood loss4 cc. The patient tolerated the procedure well and there were no complications Impression: Successful ultrasound-guided needle placement right internal jugular vein Successful permanent tunneled dialysis catheter insertion, percutaneous Fluoroscopy 0.5 minute radiation dose 8.36 milligray 1 spot fluoroscopic chest film. AP chest performed at completion procedure demonstrates satisfactory position dialysis catheter. May use dialysis catheter.
[2024-11-26] MEDS: SOD POLYSTYRENE SULFON SUSP 15 GM/60 ML BTL PO (02:04)
[2024-11-26 06:00] LABS: Parathyroid Hormone Intact 490.3 pg/ml (18.5-88.0)
[2024-11-26 06:09] LABS: INR 1.1 (0.9-1.3); Partial Thromboplastin Time 32.0 Seconds (22.0-36.0); Prothrombin Time 11.8 Seconds (9.0-12.2)
[2024-11-26 06:11] LABS: Basophils # (Auto) 0.0 Thou/mm3 (0.0-0.2); Basophils % (Auto) 0 % (0-2.5); Eosinophils # (Auto) 0.2 Thou/mm3 (0.0-0.5); Eosinophils % (Auto) 2 % (0-10); Immature Granulocytes Auto 0.04 Thou/mm3 (0.00-0.00); Immature Reticulocyte Fraction 9.5 % (2.3-13.4); Lymphocytes # (Auto) 1.1 Thou/mm3 (1.0-4.8); Lymphocytes % (Auto) 15 % (10-50); Mean Corpuscular HGB Conc 33.3 g/dl (31.0-37.0); Mean Corpuscular Hemoglobin 27.9 pg (25.0-35.0); Mean Corpuscular Volume 84 fL (80-100); Monocytes # (Auto) 0.8 Thou/mm3 (0.0-0.8); Monocytes % (Auto) 12 % (0-12); Neutrophils # (Auto) 4.9 Thou/mm3 (1.8-7.7); Neutrophils % (Auto) 70 % (37-80); Nucleated Red Blood Cell # 0.00 Thou/mm3 (0.00-0.00); Nucleated Red Blood Cell % 0 /100 WBC (0); Platelet Count 179 Thou/mm3 (140-440); RDW Standard Deviation 39.8 fL (35.1-43.9); Red Blood Count 2.04 Miln/mm3 (4.50-5.90); Reticulocyte % (Auto) 1.2 % (0.5-1.5); Reticulocyte Absolute Auto 23.5 Biln/L (25.0-75.0); Reticulocyte Hgb Content 29.6 pg (28.0-35.0); White Blood Count 7.0 Thou/mm3 (3.8-10.6)
[2024-11-26 06:19] LABS: Hematocrit 17.1 % (41.0-53.0); Hemoglobin 5.7 g/dL (13.5-16.0)
[2024-11-26 06:25] LABS: Ferritin 147 ng/mL (10.5-307.3); Iron 18 mcg/dL (65-175); Path Review Blood Smear Sent to Pathologist; Percent Iron Saturation 8 % (20-55); Total Iron Binding Capacity 218 mcg/dL (250-425); Unsaturated Iron Binding 200 (225-295)
[2024-11-26 06:29] LABS: Alanine Aminotransferase 8 U/L (10-49); Albumin, Serum 3.3 gm/dL (3.5-5.0); Albumin/Globulin Ratio 1.4 (1.2-2.2); Alkaline Phosphatase 47 U/L (46-116); Anion Gap 17 (7-16); Aspartate Amino Transferase 13 U/L (0-34); Bilirubin,Total 0.5 mg/dL (0.3-1.2); Cardiac Risk Estimate 7.4 RATIO (4.0-6.7); Chloride 108 mMol/L (98-107); Cholesterol 238 mg/dL (132-200); Globulin 2.3 gm/dL (2.3-3.5); Glucose 97 mg/dL (74-106); HDL Cholesterol 32 mg/dL (40-60); LDL Cholesterol,Calculated 182 mg/dL (0-130); Magnesium 1.5 mg/dL (1.6-2.6); Potassium 5.1 mMol/L (3.4-5.1); Sodium 140 mMol/L (136-145); Thyroid Stimulating Hormone 1.73 uIU/mL (0.55-4.78); Total Protein 5.6 gm/dL (5.7-8.2); Triglycerides 121 mg/dL (30-150)
[2024-11-26 06:30] LABS: BUN/Creatinine Ratio 8 Ratio (12-20); Blood Urea Nitrogen 107 mg/dL (9-23); Creatinine (Component) 12.8 mg/dL (0.6-1.3); Estimated Creatinine Clearance 10.7 mL/min (>60); Osmolality,Calculated 313 (275-295); eGFR 4 See Note
[2024-11-26 06:44] LABS: Carbon Dioxide 14.8 mMol/L (20.0-31.0)
[2024-11-26 06:45] LABS: Calcium 6.1 mg/dL (8.3-10.6)
[2024-11-26 06:46] LABS: Calcium (Corrected) 6.7 mg/dL (8.5-10.1)
[2024-11-26 06:47] LABS: Troponin I 0.072 ng/mL (0.0-0.045)
[2024-11-26 06:49] LABS: Phosphorous 10.0 mg/dL (2.4-5.1)
--- NOTE | 2024-11-26 06:58 | PC.NURSE ---
Dr Santiago made aware of [facility] labs this am. states he will pass on results to day team
[2024-11-26] MEDS: Sodium Bicarb Inj 8.4% SYR 50 ML SYRINGE IV (07:47)
--- NOTE | 2024-11-26 09:19 | ESPR_ITS ---
<Statement entered by Tien Carrillo MD - 12/10/24 15:05> I reviewed above note and agree with findings and plans. I have also personally examined the patient with medicine team and went over assessment and plan with medical team including transportation logistics internship and resident physician. <Statement entered by Reji Duke MD - 11/26/24 15:39> I have reviewed the note and agree with the resident's assessment & plan with exceptions as below. I have personally reviewed labs, imaging, home meds/prior records, examined the patient, formulated and discussed management plan with the IM team. Patient examined bedside today. No acute events overnight. Patient reports he is doing okay. Patient to get tunneled dialysis catheter today by IR and to have a follow-up hemodialysis session afterwards. Patient's hemoglobin today 5.7, patient to get transfused 2 PRBCs during dialysis. Patient continued to be acidotic, likely related to uremia, bicarb level around 13, will initiate bicarb drip. Nephrology on consult, appreciate recommendations. Troponin down trended, like related to demand ischemia NSTEMI type II. Will add calcitriol for secondary Hyperparathyroidism. Pending echo. Repeat hematology, electrolytes and chemistry in the a.m. #Acute renal failure #Hyperkalemia #High anion gap metabolic acidosis #Uremia #Electrolyte derangements #Hypocalcemia #Secondary hyperparathyroidism Reji Duke, PGY-2 Internal Medicine Documentation for date of: 11/26/24 Subjective Subjective Interval history: Patient examined bedside feeling good breathing fine on RA, slept well with BiPAP. He has ongoing cough he reports has improved. His headache and SOB are still present. He had loose BM last night that was brown without blood or mucous. He states his right ankle feels like it is having a gout flare up. He denies fever, chest pain, chest pressure, NVD, Exam Vital Signs Temp Pulse Resp BP Pulse Ox O2 Del Method 98.5 F 78 10 L 170/92 H 97 CPAP 11/26/24 08:00 11/26/24 08:00 11/26/24 08:00 11/26/24 08:00 11/26/24 08:00 11/26/24 08:00 Narrative Exam GENERAL APPEARANCE: Alert and interactive, follows commands, no acute distress, morbidly obese HEENT: Non-traumatic. PERRL, pale conjunctiva, eyelid no trauma, Mucous membrane moist. NECK: Supple, nontender, no nuchal rigidity. CHEST: No tenderness, no crepitus, no paradoxical movement, no retractions. LUNGS: Soft crackles left lung base HEART: Regular rate, regular rhythm, no murmur, no gallops. Mild JVD mild hepatojugular reflux. ABDOMEN: Soft, positive bowel sounds, nondistended, no guarding, nontender, no rebound, no masses, NEUROLOGICAL: Gross motor function intact sensory function intact, Appropriate for age. MUSCULOSKELETAL: low back nontender, full range of motion. EXTREMITIES: Nontender, full range of motion. +2 pitting edema. Right ankle moderately more swollen and warmer than the L, Tender to deep palpation on lateral malleolus SKIN: Color pale, dry, no rash, no lacerations, no abrasions, no contusions. Objective Labs 11/26/24 04:49 11/26/24 04:49 Labs: Laboratory Results - last 24 hr 11/25/24 11/25/24 11/25/24 13:50 14:37 16:28 WBC 8.1 RBC 2.36 L Hgb 6.7 L* Hct 20.0 L* MCV 85 MCH 28.4 MCHC 33.5 RDW Std Deviation 39.8 Plt Count 211 Neut % (Auto) 79 Lymph % (Auto) 11 [place] % (Auto) 8 Eos % (Auto) 2 Baso % (Auto) 0 Neut # (Auto) 6.3 Lymph # (Auto) 0.9 L [place] # (Auto) 0.6 Eos # (Auto) 0.1 Baso # (Auto) 0.0 Immature Gran # (Auto) 0.05 H Absolute Nucleated RBC 0.00 Immature Gran % 1 H Nucleated RBC % 0 Smear Path Review Sent to Pathologist Retic Count (auto) Absolute Retic Immature Retic Fraction Retic Hgb Content CHr PT 11.5 INR 1.1 APTT 33.0 Sodium 140 Potassium 5.2 H Chloride 107 Carbon Dioxide 14.9 L* Anion Gap 18 H BUN 106 H* Creatinine 12.5 H* Estim Creat Clear Calc 10.9 L eGFR 5 L* BUN/Creatinine Ratio 8 L Glucose 122 H Calculated Osmolality 313 H Calcium 6.5 L* Corrected Calcium 6.6 L* Phosphorus Magnesium Iron TIBC Iron Saturation Unsat Iron Binding Ferritin Total Bilirubin 0.4 AST 14 ALT 8 L Alkaline Phosphatase 57 Troponin I 0.072 H* Total Protein 6.5 Albumin 3.9 Globulin 2.6 Albumin/Globulin Ratio 1.5 Triglycerides Cholesterol LDL Cholesterol, Calc HDL Cholesterol Cholesterol/HDL Ratio TSH PTH Intact Ur Collection Type Clean Catch Urine Color Colorless A Urine Clarity Clear Urine pH 6.5 Ur Specific [place] 1.011 Urine Protein 3+ A Urine Glucose (UA) 1+ A Urine Ketones Negative Urine Blood 1+ A Urine Nitrite Negative Urine Bilirubin Negative Urine Urobilinogen (Auto) Negative Ur Leukocyte Esterase Negative Urine RBC 4 H Urine WBC 20 H Ur Squamous Epith Cells 1 Amorphous Crystals Present A Urine Bacteria None Urine Opiates Screen Negative Urine Fentanyl Screen Negative Ur Barbiturates Screen Negative U Amphetamin/Meth Scrn Negative U Benzodiazepines Scrn Negative U Cocaine Metab Screen Negative U Marijuana (THC) Screen Negative Hepatitis A IgM Ab Non Reactive Hep Bs Antigen Non Reactive Hep B Core IgM Ab Non Reactive Hepatitis C Antibody Non Reactive HIV 1&2 Antibody Rapid Non-Reactive Blood Type A Positive Antibody Screen NEGATIVE Crossmatch See Detail Blood Bank Wristband ID Yes 11/25/24 11/26/24 20:32 04:49 WBC 7.0 RBC 2.04 L Hgb 5.7 L* Hct 17.1 L* MCV 84 MCH 27.9 MCHC 33.3 RDW Std Deviation 39.8 Plt Count 179 D Neut % (Auto) 70 Lymph % (Auto) 15 [place] % (Auto) 12 Eos % (Auto) 2 Baso % (Auto) 0 Neut # (Auto) 4.9 Lymph # (Auto) 1.1 [place] # (Auto) 0.8 Eos # (Auto) 0.2 Baso # (Auto) 0.0 Immature Gran # (Auto) 0.04 H Absolute Nucleated RBC 0.00 Immature Gran % 1 H Nucleated RBC % 0 Smear Path Review Sent to Pathologist Retic Count (auto) 1.2 Absolute Retic 23.5 L Immature Retic Fraction 9.5 Retic Hgb Content CHr 29.6 PT 11.8 INR 1.1 APTT 32.0 Sodium 140 140 Potassium 5.4 H 5.1 Chloride 107 108 H Carbon Dioxide 15.4 L 14.8 L* Anion Gap 18 H 17 H BUN 109 H* 107 H* Creatinine 12.4 H* 12.8 H* Estim Creat Clear Calc 11.0 L 10.7 L eGFR 5 L* 4 L* BUN/Creatinine Ratio 9 L 8 L Glucose 100 97 Calculated Osmolality 313 H 313 H Calcium 6.5 L* 6.1 L* Corrected Calcium 6.8 L* 6.7 L* Phosphorus 9.7 H 10.0 H Magnesium 1.4 L 1.5 L Iron 18 L TIBC 218 L Iron Saturation 8 L Unsat Iron Binding 200 L Ferritin 147 Total Bilirubin 0.5 AST 13 ALT 8 L Alkaline Phosphatase 47 Troponin I 0.070 H* 0.072 H* Total Protein 5.6 L Albumin 3.6 3.3 L Globulin 2.3 Albumin/Globulin Ratio 1.4 Triglycerides 121 Cholesterol 238 H LDL Cholesterol, Calc 182 H HDL Cholesterol 32 L Cholesterol/HDL Ratio 7.4 H TSH 1.73 PTH Intact 490.3 H Ur Collection Type Urine Color Urine Clarity Urine pH Ur Specific [place] Urine Protein Urine Glucose (UA) Urine Ketones Urine Blood Urine Nitrite Urine Bilirubin Urine Urobilinogen (Auto) Ur Leukocyte Esterase Urine RBC Urine WBC Ur Squamous Epith Cells Amorphous Crystals Urine Bacteria Urine Opiates Screen Urine Fentanyl Screen Ur Barbiturates Screen U Amphetamin/Meth Scrn U Benzodiazepines Scrn U Cocaine Metab Screen U Marijuana (THC) Screen Hepatitis A IgM Ab Hep Bs Antigen Hep B Core IgM Ab Hepatitis C Antibody HIV 1&2 Antibody Rapid Blood Type Antibody Screen Crossmatch Blood Bank Wristband ID Quality Measures Quality Measures none Assessment & Plan Assessment Current Active Medications: Generic Name Dose Route Start Last Admin Trade Name Freq PRN Reason Stop Dose Admin Acetaminophen 650 mg 11/25/24 17:58 Acetaminophen 325 Mg Tablet PO 12/25/24 17:57 Q6H PRN for fever >100.4 or pain 1-3 Hydrocodone Bitart/Acetaminophen 1 tab 11/25/24 18:09 Hydrocodone/Apap 5/325 Tablet PO 11/30/24 18:08 Q4HR PRN PAIN SCALE 4-6 (Moderate Albuterol/Ipratropium 3 ml 11/25/24 18:09 Albuterol/Ipratropium (Duoneb) Rt Beryl 3 Ml Nebu INH 12/25/24 18:59 Q6HRRT PRN sob Amoxicillin/Clavulanate Potassium 500 mg 11/26/24 09:00 Amoxicillin/Pot Clav 500 Mg Tablet PO 12/03/24 08:59 BID KATHARINA Atorvastatin Calcium 40 mg 11/25/24 21:00 11/25/24 21:06 Atorvastatin Calcium 20 Mg Tablet PO 12/25/24 20:59 40 mg HS KATHARINA Administration Azithromycin 500 mg 11/26/24 09:00 Azithromycin 250 Mg Tablet PO 12/03/24 08:59 QDAY KATHARINA Calcium Acetate 667 mg 11/26/24 08:00 Calcium Acetate 667 Mg Tablet PO 12/26/24 07:59 TIDWM KATHARINA Dextrose 25 ml 11/25/24 18:15 Dextrose 50%-Water Inj 50 Ml Syringe IV 12/25/24 18:14 Q15MIN PRN BG 50-70 responsive npo pt Dextrose 50 ml 11/25/24 18:15 Dextrose 50%-Water Inj 50 Ml Syringe IV 12/25/24 18:14 Q15MIN PRN BG <50 OR BG <70 & pt unresponsive Glucagon 1 mg 11/25/24 18:15 Glucagon Inj 1 Mg Vial IM Q15MIN PRN BG <70, and no IV access Sodium Bicarbonate 88.23 meq/ 588.23 mls @ 75 mls/hr 11/26/24 08:25 Dextrose IV 12/26/24 08:24 .[id number] [facility] Insulin Human Lispro 0 unit 11/25/24 21:00 11/26/24 07:39 Insulin Lispro (Admelog) 1 Unit/0.01 Ml Unit SC 12/25/24 20:59 Not Given ACHS [facility] Protocol Labetalol HCl 10 mg 11/25/24 18:24 11/25/24 18:55 Labetalol Inj 5 Mg/Ml Vial 20 Ml IVP 12/25/24 18:29 10 mg Q2H PRN Administration SBP above 180 Pantoprazole Sodium 40 mg 11/25/24 18:15 11/26/24 08:04 Pantoprazole Inj 40 Mg Vial IVP 12/25/24 18:14 40 mg QDAY KATHARINA Administration Sennosides 1 tab 11/25/24 17:58 Senna Tablet PO 12/25/24 17:57 QDAY PRN constipation Protocol Plan 49 male patient with significant history of DM2(not on insulin), hypertension, chronic kidney disease, not taking any medication, came in for evaluation regarding worsening shortness of breath, dyspnea on exertion, dizziness, palpitation especially on exertion and activity. Patient is volume overloaded most likely 2/2 to delay in HDS needed for ESRD as evidenced by his renal panel. Also f/t/h PNA on CXR also evidenced by B symptoms on HPI and physical exam. Plan for dialysis, diuresis, electrolyte management of ESRD, and abx for PNA. Will not give pRBCs due to vol overload status despite hgb:6. Given 2 units pRBCs today following HDS. #Acute on chronic anemia #Inflam anemia: Low iron, high/normal ferritin, low TIBC, low transferrin, low saturation Patient at baseline has low hemoglobin. Hyperuricemia could be causing oxidative stress, could be 2/2 to vol. overload status diluting blood, most likely some form of inflam anemia. Given 2 units pRBCs with HDS, held until HDS due to vol. overload status. DDx: GI Bleed, Cancer, chronic anemia, medication induced FOBT: None NSAID use: Unsure Blood thinner use:Unsure Hgb 6.7, transfusion held due to concern for overload (TACO) -Plan to transfuse during HDS Plan: ? Trend CBC ? Iron studies panel with ferritin; Iron: 18 (low), TIBC: 218 (low), Sat: 8 (low), Unsat: 200 (low), ferritin: 147 (normal) ? Reticulocyte Count: Abs: 23.5, Immature: 9.5% Retic Hgb: 29.6 ? Peripheral blood smear: Pending ? Transfusion protocol hemoglobin below 7, ? Avoiding any NSAIDs ? SCDs ? Protonix 40 mg daily #Acute kidney injury on CKD - on HDS now #Hyperuricemia #Secondary Hyperparathyroidism #Anion gap metabolic acidosis DDx: Prerenal versus ATN versus obstructive Likely related to Uremia. Patient should have had dialysis had it not been for insurance lapses. EGFR:5, BUN:106, Cr: 12.5, A, K: 5.2. SOB and +2 pitting edema. HTN most likely due to vol overload as well Calcium 6.6, PTH: elevated Plan: ?Nephrology (Dr. Aaron) consulted, appreciate recs -Ca acetate 667 TID -D3 MWF -Once BPs lower transfuse pRBCs -Inpatient dialysis x3days in a row then transition to outpatient ?Strict I's and O's ?Lasix 40 mg IV ?Sodium Bicarb 50 mL x1 ?Renal panel 1999 ?IR dialysis cath tomorrow with HD ?Calcium gluconate 1 g and Albuterol x1 #Hypertensive emergency Initial BP: 191/93 in ED. 10mg hydralazine given in ED. Currently 170/92. SOB w/ +2 pitting edema. Most likely 2/2 vol overload Plan: ? Do not correct systolic blood pressure more than 25% within the first 24 hours ? Labetalol 10 mg IV Q2H PRN for SBP above 180, hold if HR is below 65 #Elevated troponins ).072 --> 0.07 --> 0.072 Slightly elevated, likely demand ischemia NSTEMI type II Plan: Troponin at 2000 #CHF Unsure if it is reduced Ship Washer is Dr. Parham Plan: ?Echo ?Telemetry #Likely PNA patient has viral symptomatology of SOB and cough. ED CXR: diffuse significant LL lung PNA. Crackles in left lung base on physical. patient has viral symptomatology of SOB and cough Plan: -Amox/Clav 875 BID -Aizthro 500mg PO QD - 5 days -TB skin test -Flu/covid screen -Sputum culture and gram stain #UTI WBC: 20 Plan: -Cross coverage of PNA tx augmentin + Azithro #Hypercholesterolemia Cholesterol: 236, LDL: 182, HDL: 32 Plan: -Continue 40mg PO HS #Secondary hyperparathyroidism #Hypocalcemia #Hyperphosphatemia PTH: 490 Ca: 6.1 corrected:6.7, P-:10.0 Plan: -reevaluate following HDS -FUP outpatient with nephro #T2DM (Non-insulin) Plan: -Bedside glucose -ISS -D50 prn hypoglycemia Health Maintenance: DVT prophylaxis: SCDs Diet: Carb consistent Zimmerman: None Lines: PIV Supplemental O2: Nasal cannula CODE STATUS: Full Disposition: Admitted to the hospital for fluid overload and likely PNA Patient seen and reviewed with attending Dr. Carrillo and supervising resident Dr. Duek. Note written by Dennis Alexandra MD PGY-1
[2024-11-26] MEDS: HEPARIN SOD LOCK SYR 100 UNIT/ML 500 UNIT STFIELD (10:00)
[2024-11-26] MEDS: fentaNYL CIT INJ 50 mCg/ML AMP 2ML 100 MCG IVP (10:10)
[2024-11-26] MEDS: LIDOCAINE INJ PF 1% 30 ML VIAL 11 ML INFL (10:11)
--- NOTE | 2024-11-26 10:18 | PC.SS ---
Jarvis Freeman is a 49 year-old male admitted to [facility] for Fluid Overload. SS conducted bedside contact with the patient to complete initial assessment and to discuss discharge planning. Role and reason explained. Patient confirmed demographic information. Patient lives with his , and identifies her Aileen Freeman [phone] as his surrogate decision maker. Pt states he is able to complete all ADL?s independent. Pt does not possesses any DME only a CPAP. Pts PCP is Eva. Pharmacy of choice is [facility]. Discharge options discussed and the pt wishes to return home.? Pt will provide transport. No further intervention required at this time, social media intern would be available to address any further concerns. DC Plan: Home Contact: Nola PCP: Eva (last visit 3 months ago)
[2024-11-26] MEDS: HEPARIN SOD INJ 1000 UNIT/ML VIAL 4100 UNIT INDWELLCAT (10:25)
--- NOTE | 2024-11-26 10:35 | PC.NURSE ---
1035 patient is awake, alert, breathing unlabored, s/p tunneled hemodialysis catheter to right IJ, dressing dry and intact, report given to Cortney PADRON, patient transferred back to room 260 with tele box
--- NOTE | 2024-11-26 11:00 | PC.NURSE ---
Per Dr. Calderon wait on calcitrol until after dialysis, but continue with sodium bicarb drip.
--- NOTE | 2024-11-26 11:26 | PC.NURSE ---
Called trinidad [facility]WOOD to come draw ABG, pt. came back from IR.
[2024-11-26] MEDS: Sodium Bicarb 8.4% 50ml Vial* 88.23 MEQ in DEXTROSE 5%-WATER 500 ML 75 MEQ IV (11:29)
[2024-11-26 11:51] LABS: Base Excess -11 (-3-3); HCO3 14 mEq/L (20-26); Inspired Oxygen, FIO2 21 %; O2 Saturation 96 % (91-98); PCO2 30 mmHg (32.0-48.0); PO2 82 mmHg (83-108); pH, Arterial 7.29 (7.35-7.45)
[2024-11-26 11:52] LABS: Allen Test Not Performed; Puncture Site Right Brachial
--- NOTE | 2024-11-26 12:10 | PC.NURSE ---
Dr. Alexandra aware pt. BP 180/100 but pt. heading to dialysis now. NO new orders received.
[2024-11-26] MEDS: HYDROcodone/APAP 5/325 TABLET 1 TAB PO ×3 (13:15→22:28)
--- NOTE | 2024-11-26 16:12 | PC.NURSE ---
1000- patient went for hemodialysis insertion at this time.
--- NOTE | 2024-11-26 16:14 | PC.NURSE ---
patient has order to type and screen but no actual order to transfused blood.
--- NOTE | 2024-11-26 16:31 | PC.NURSE ---
Called pharmacist Devi for PPD and Calcitrol
[2024-11-26] MEDS: LABETALOL INJ 5 MG/ML VIAL 20 ML 10 MG IVP (16:47)
[2024-11-26] MEDS: CALCIUM ACETATE 667 MG TABLET PO (16:48)
[2024-11-26] MEDS: TUBERCULIN PPD INJ 5 UNIT/0.1 ML DOSE ID (16:49)
--- NOTE | 2024-11-26 18:01 | PC.NURSE ---
Dr. Aaron aware pt. received Calcium acetate 667 mg with dinner. orders to hold dose that was just ordered and start it tomorrow
--- NOTE | 2024-11-26 18:56 | PC.NURSE ---
Dr. Adhikari aware pt. BP still 168/86 after labetolol, no new orders recieved.
[2024-11-26] MEDS: HEPARIN SOD INJ 1000 UNIT/ML VIAL 10 ML 4100 UNIT INDWELLCAT (19:01)
[2024-11-26] MEDS: AMOXICILLIN/POT CLAV 500 MG TABLET PO (20:26)
[2024-11-26] MEDS: ATORVASTATIN CALCIUM 20 MG TABLET 40 MG PO (20:26)
[2024-11-26] MEDS: INSULIN LISPRO (AdmeLOG) 1 UNIT/0.01 ML UNIT SC (20:37)
--- NOTE | 2024-11-26 22:20 | ESPR_ITS ---
RE: DILEEP ACOSTA : 1975 DATE OF SERVICE: 11/26/2024 HISTORY OF PRESENT ILLNESS: Briefly, he is a 49-year-old immigrant gentleman with type 2 diabetes since 2016 with proteinuria, hypertension, stage V CKD since 2024, who presented to the emergency room yesterday with weakness and shortness of breath. He was admitted for initiation of dialysis treatment. He dialyzed earlier today about 2 liters of fluid was removed. CURRENT MEDICATIONS: 1. Albuterol. 2. Amoxicillin. 3. Clavulanic acid 500 mg p.o. b.i.d. 4. Atorvastatin 40 mg p.o. at bedtime. 5. Azithromycin 500 mg p.o. daily. 6. Rocaltrol 0.25 mcg p.o. x1. 7. Calcium acetate 67 mg 1 cup p.o. daily with meals. PHYSICAL EXAMINATION: General: He is awake, alert, and oriented. Vital Signs: Blood pressure of 172/85. Heart rate of 76. HEENT: Anicteric sclerae. Normocephalic. Neck: Neck is supple. JVD. Chest and Lungs: Symmetric expansion. Clear breath sounds. Heart: Without murmur. Abdomen: Soft, obese. Extremities: 2+BL lower extremity pitting edema. LABORATORY DATA: Hemoglobin 5.7, WBC 7,000, platelet count 179,000, sodium 140, potassium 5.1, chloride 108, CO2 14.8, BUN 107, creatinine 12.8, calcium 6.7, glucose 97, phosphorus 10, troponin level is 0.072. ASSESSMENT: 1. End-stage renal disease secondary to diabetic nephropathy and hypertensive nephrosclerosis. 2.Type 2 diabetes. 3. Hypertension. 4. Anemia of chronic kidney disease. 5. Obesity. 6. Hypocalcemia from secondary hyperparathyroidism and hyperphosphatemia. 7. Slightly elevated troponin level possible type 2 [id number] myocardial infarction due to volume overload. PLAN: The patient had dialysis today, about 2 liters of fluid was removed. I will also stop bicarb drip today. We will continue his calcitriol 0.25 mg MWF and calcium acetate 667 mg 2 tablets p.o. TID with meals. Dialysis will continue tomorrow and we will try to remove as much fluid. The patient also received 1 unit of packed RBC today. Anemia most likely dilutional versus GI bleed. DT: 21:28:17 TT: 21:58:00 Ref: [id number] - TID: [id number] MTDD
[2024-11-26 22:24] LABS: Albumin, Serum 3.4 gm/dL (3.5-5.0); Anion Gap 16 (7-16); Blood Urea Nitrogen 79 mg/dL (9-23); Calcium (Corrected) 7.2 mg/dL (8.5-10.1); Carbon Dioxide 21.5 mMol/L (20.0-31.0); Chloride 101 mMol/L (98-107); Glucose 187 mg/dL (74-106); Osmolality,Calculated 304 (275-295); Phosphorous 7.2 mg/dL (2.4-5.1); Potassium 4.0 mMol/L (3.4-5.1); Sodium 138 mMol/L (136-145)
[2024-11-26 22:28] LABS: BUN/Creatinine Ratio 8 Ratio (12-20); Creatinine (Component) 10.0 mg/dL (0.6-1.3); Estimated Creatinine Clearance 13.8 mL/min (>60); eGFR 6 See Note
[2024-11-26 22:30] LABS: Calcium 6.7 mg/dL (8.3-10.6)
[2024-11-26 22:33] LABS: Hematocrit 22.1 % (41.0-53.0)
[2024-11-26 22:34] LABS: Hemoglobin 7.5 g/dL (13.5-16.0)
[2024-11-27] VITALS (29 sets, daily range): BP systolic 159–210; BP diastolic 76–107; PULSE 76–88; RESP 14–95; TEMP 36.4–37.1; O2SAT 92–95
[2024-11-27 06:21] LABS: Basophils # (Auto) 0.0 Thou/mm3 (0.0-0.2); Basophils % (Auto) 0 % (0-2.5); Eosinophils # (Auto) 0.1 Thou/mm3 (0.0-0.5); Eosinophils % (Auto) 1 % (0-10); Hematocrit 21.5 % (41.0-53.0); Immature Granulocytes Auto 0.05 Thou/mm3 (0.00-0.00); Lymphocytes # (Auto) 0.6 Thou/mm3 (1.0-4.8); Lymphocytes % (Auto) 7 % (10-50); Mean Corpuscular HGB Conc 33.5 g/dl (31.0-37.0); Mean Corpuscular Hemoglobin 28.3 pg (25.0-35.0); Mean Corpuscular Volume 85 fL (80-100); Monocytes # (Auto) 0.8 Thou/mm3 (0.0-0.8); Monocytes % (Auto) 10 % (0-12); Neutrophils # (Auto) 7.0 Thou/mm3 (1.8-7.7); Neutrophils % (Auto) 81 % (37-80); Nucleated Red Blood Cell # 0.00 Thou/mm3 (0.00-0.00); Nucleated Red Blood Cell % 0 /100 WBC (0); Platelet Count 200 Thou/mm3 (140-440); RDW Standard Deviation 39.7 fL (35.1-43.9); Red Blood Count 2.54 Miln/mm3 (4.50-5.90); White Blood Count 8.7 Thou/mm3 (3.8-10.6)
[2024-11-27 06:27] LABS: Hemoglobin 7.2 g/dL (13.5-16.0)
[2024-11-27 07:12] LABS: Alanine Aminotransferase < 7 U/L (10-49); Albumin, Serum 3.3 gm/dL (3.5-5.0); Albumin/Globulin Ratio 1.5 (1.2-2.2); Alkaline Phosphatase 48 U/L (46-116); Anion Gap 18 (7-16); Aspartate Amino Transferase < 8 U/L (0-34); BUN/Creatinine Ratio 9 Ratio (12-20); Bilirubin,Total 0.8 mg/dL (0.3-1.2); Blood Urea Nitrogen 92 mg/dL (9-23); Calcium (Corrected) 7.2 mg/dL (8.5-10.1); Carbon Dioxide 19.5 mMol/L (20.0-31.0); Chloride 101 mMol/L (98-107); Creatinine (Component) 10.6 mg/dL (0.6-1.3); Estimated Creatinine Clearance 13.0 mL/min (>60); Globulin 2.2 gm/dL (2.3-3.5); Glucose 137 mg/dL (74-106); Magnesium 1.0 mg/dL (1.6-2.6); Osmolality,Calculated 305 (275-295); Phosphorous 8.8 mg/dL (2.4-5.1); Potassium 4.2 mMol/L (3.4-5.1); Sodium 138 mMol/L (136-145); Total Protein 5.5 gm/dL (5.7-8.2); eGFR 5 See Note
[2024-11-27 07:44] LABS: Calcium 6.6 mg/dL (8.3-10.6)
--- NOTE | 2024-11-27 08:53 | PC.SS ---
SS submitted documentation for a new Chair Time with MARI Jacobson. F#[id number]
--- NOTE | 2024-11-27 09:16 | PC.NURSE ---
PT BP ELEVATED, PT DENIES ALL S/S OF HYPERTENSION. ADMINISTERED 1 UNIT OF PRBC'S, UF GOAL INCREASED TO ACCOUNT TOLERATED WILL CONT. TO MONITOR
[2024-11-27] MEDS: LABETALOL INJ 5 MG/ML VIAL 20 ML 10 MG IVP ×2 (10:18→12:28)
[2024-11-27] MEDS: HYDROcodone/APAP 5/325 TABLET 1 TAB PO ×2 (11:19→19:35)
[2024-11-27] MEDS: HEPARIN SOD INJ 1000 UNIT/ML VIAL 10 ML 4100 UNIT INDWELLCAT (11:22)
[2024-11-27] MEDS: AZITHROMYCIN 250 MG TABLET 500 MG PO (12:27)
[2024-11-27] MEDS: PANTOPRAZOLE 40 MG TABLET PO (12:27)
[2024-11-27] MEDS: AMOXICILLIN/POT CLAV 500 MG TABLET PO (12:28)
[2024-11-27] MEDS: IRON SUCROSE CPLX INJ 20 MG/ML VIAL 5 ML 100 MG IVP (12:28)
[2024-11-27] MEDS: CALCIUM ACETATE 667 MG TABLET 1334 MG PO ×2 (12:36→17:27)
--- NOTE | 2024-11-27 15:00 | PC.SS ---
Rounding note: Receiving 2nd HD session, PPD to be read in 1 more day. Patient to discharge home when medically clear.
--- NOTE | 2024-11-27 16:31 | PD.RESPRO ---
Documentation for date of: 11/27/24 Subjective Subjective Interval history: 2 fluids of renal removed yesterday, bicarb stopped, calcitriol continued and getting 2mg ca acetate with meals. Patient examined bedside during HDS grunting due to pain from gout flare up. Using 3L O2, desaturated when lying down, breathed fine last night on BIPAP. He has ongoing cough he reports has improved. His headache and SOB are still present. No BM yet today but feels like one is coming. Right ankle feels like it is having a gout flare up. He denies fever, chest pain, chest pressure, NVD, Exam Vital Signs Temp Pulse Resp BP Pulse Ox O2 Del Method O2 Flow Rate 98.6 F 88 23 H 189/92 H 93 L Room Air 2 11/27/24 12:00 11/27/24 12:11/27/24 12:00 11/27/24 12:11/27/24 12:11/27/24 12:11/26/24 10:25 Narrative Exam GENERAL APPEARANCE: Alert and interactive, follows commands, no acute distress, morbidly obese HEENT: Non-traumatic. PERRL, pale conjunctiva, eyelid no trauma, Mucous membrane moist. NECK: Supple, nontender, no nuchal rigidity. CHEST: No tenderness, no crepitus, no paradoxical movement, no retractions. LUNGS: Soft crackles bilateral lung base HEART: Regular rate, regular rhythm, no murmur, no gallops. No JVD noted no hepatjugular reflux seen ABDOMEN: Soft, positive bowel sounds, nondistended, no guarding, nontender, no rebound, no masses, NEUROLOGICAL: Gross motor function intact sensory function intact, Appropriate for age. MUSCULOSKELETAL: low back nontender, full range of motion. EXTREMITIES: Nontender, full range of motion. +2 pitting edema. Right ankle moderately more swollen and warmer than the L, Tender to deep palpation on lateral malleolus, in ankle brace. SKIN: Color pale, dry, no rash, no lacerations, no abrasions, no contusions. Objective Labs 11/28/24 06:23 11/28/24 06:23 Labs: Laboratory Results - last 24 hr 11/25/24 11/26/24 11/26/24 16:28 19:28 22:13 WBC RBC Hgb 7.5 L D Hct 22.1 L MCV MCH MCHC RDW Std Deviation Plt Count Neut % (Auto) Lymph % (Auto) [facility] % (Auto) Eos % (Auto) Baso % (Auto) Neut # (Auto) Lymph # (Auto) [facility] # (Auto) Eos # (Auto) Baso # (Auto) Immature Gran # (Auto) Absolute Nucleated RBC Immature Gran % Nucleated RBC % Sodium 138 Potassium 4.0 D Chloride 101 Carbon Dioxide 21.5 Anion Gap 16 BUN 79 H Creatinine 10.0 H* D Estim Creat Clear Calc 13.8 L eGFR 6 L* BUN/Creatinine Ratio 8 L Glucose 187 H D Calculated Osmolality 304 H Calcium 6.7 L* Corrected Calcium 7.2 L Phosphorus 7.2 H Magnesium Total Bilirubin AST ALT Alkaline Phosphatase Total Protein Albumin 3.4 L Globulin Albumin/Globulin Ratio Blood Type A Positive Antibody Screen NEGATIVE Crossmatch See Detail Blood Bank Wristband ID Yes 11/27/24 06:03 WBC 8.7 RBC 2.54 L Hgb 7.2 L Hct 21.5 L* MCV 85 MCH 28.3 MCHC 33.5 RDW Std Deviation 39.7 Plt Count 200 Neut % (Auto) 81 H Lymph % (Auto) [address] [place] [facility] % (Auto) 10 Eos % (Auto) 1 Baso % (Auto) 0 Neut # (Auto) 7.0 Lymph # (Auto) 0.[address] [facility] # (Auto) 0.8 Eos # (Auto) 0.1 Baso # (Auto) 0.0 Immature Gran # (Auto) 0.05 H Absolute Nucleated RBC 0.00 Immature Gran % 1 H Nucleated RBC % 0 Sodium 138 Potassium 4.2 Chloride 101 Carbon Dioxide 19.5 L Anion Gap 18 H BUN 92 H Creatinine 10.6 H* D Estim Creat Clear Calc 13.0 L eGFR 5 L* BUN/Creatinine Ratio 9 L Glucose 137 H D Calculated Osmolality 305 H Calcium 6.6 L* Corrected Calcium 7.2 L Phosphorus 8.8 H Magnesium 1.0 L Total Bilirubin 0.8 AST < 8 ALT < 7 L Alkaline Phosphatase 48 Total Protein 5.5 L Albumin 3.3 L Globulin 2.2 L Albumin/Globulin Ratio 1.5 Blood Type Antibody Screen Crossmatch Blood Bank Wristband ID ABG Interpretation ABG results: 11/26/24 11:43 ABG pH 7.29 L ABG pCO2 30 L ABG pO2 82 L ABG HCO3 14 L ABG O2 Saturation 96 ABG Base Excess -11 L Quality Measures Quality Measures none Assessment & Plan Assessment Current Active Medications: Generic Name Dose Route Start Last Admin Trade Name Gricel PRN Reason Stop Dose Admin Acetaminophen 650 mg 11/25/24 17:58 Acetaminophen 325 Mg Tablet PO 12/25/24 17:57 Q6H PRN for fever >100.4 or pain 1-3 Hydrocodone Bitart/Acetaminophen 1 tab 11/25/24 18:09 11/27/24 11:19 Hydrocodone/Apap 5/325 Tablet PO 11/30/24 18:08 1 tab Q4HR PRN Administration PAIN SCALE 4-6 (Moderate Albuterol/Ipratropium 3 ml 11/25/24 18:09 Albuterol/Ipratropium (Duoneb) Rt Beryl 3 Ml Nebu INH 12/25/24 18:59 Q6HRRT PRN sob Atorvastatin Calcium 40 mg 11/25/24 21:00 11/26/24 20:26 Atorvastatin Calcium 20 Mg Tablet PO 12/25/24 20:59 40 mg HS KATHARINA Administration Calcitriol 0.25 mcg 11/27/24 09:00 11/27/24 12:28 Calcitriol 0.25 Mcg Capsule PO 12/27/24 08:59 0.25 mcg QDAY KATHARINA Administration Calcium Acetate 1,334 mg 11/27/24 12:30 11/27/24 12:36 Calcium Acetate 667 Mg Tablet PO 12/27/24 12:29 1,334 mg TIDWM KATHARINA Administration Dextrose 25 ml 11/25/24 18:15 Dextrose 50%-Water Inj 50 Ml Syringe IV 12/25/24 18:14 Q15MIN PRN BG 50-70 responsive npo pt Dextrose 50 ml 11/25/24 18:15 Dextrose 50%-Water Inj 50 Ml Syringe IV 12/25/24 18:14 Q15MIN PRN BG <50 OR BG <70 & pt unresponsive Glucagon 1 mg 11/25/24 18:15 Glucagon Inj 1 Mg Vial IM Q15MIN PRN BG <70, and no IV access Heparin Sodium (Porcine) 4,100 unit 11/26/24 12:39 11/27/24 11:22 Heparin Sod Inj 1000 Unit/Ml Vial 10 Ml INDWELLCAT 12/10/24 12:38 4,100 unit PRN PRN Administration DIALYSIS Albumin Human 25 gm in 100 mls @ 100 mls/min 11/26/24 12:39 Albuminar-25 Ivpb IV PRN PRN DIALYSIS Insulin Human Lispro 0 unit 11/25/24 21:00 11/27/24 12:22 Insulin Lispro (Admelog) 1 Unit/0.01 Ml Unit SC 12/25/24 20:59 Not Given ACHS KATHARINA Protocol Iron Sucrose 100 mg 11/27/24 09:00 11/27/24 12:28 Iron Sucrose Cplx Inj 20 Mg/Ml Vial 5 Ml IVP 12/06/24 08:59 100 mg DAILY KATHARINA Administration Labetalol HCl 10 mg 11/25/24 18:24 11/27/24 12:28 Labetalol Inj 5 Mg/Ml Vial 20 Ml IVP 12/25/24 18:29 10 mg Q2H PRN Administration SBP above 180 Pantoprazole Sodium 40 mg 11/27/24 09:00 11/27/24 12:27 Pantoprazole 40 Mg Tablet PO 12/27/24 08:59 40 mg QDAY KATHARINA Administration Protocol Sennosides 1 tab 11/25/24 17:58 Senna Tablet PO 12/25/24 17:57 QDAY PRN constipation Protocol Plan 49 male patient with significant history of DM2(not on insulin), hypertension, chronic kidney disease, not taking any medication, came in for evaluation regarding worsening shortness of breath, dyspnea on exertion, dizziness, palpitation especially on exertion and activity. Patient is volume overloaded most likely 2/2 to delay in HDS needed for ESRD as evidenced by his renal panel. Also f/t/h PNA on CXR also evidenced by B symptoms on HPI and physical exam. Plan for dialysis, diuresis, electrolyte management of ESRD, and abx for PNA. pRBCs initally held due to vol overload status despite hgb:6. Given 2 units pRBCs today following HDS.. Dialysis day 2 given 1 unit pRBCs. #Acute on chronic anemia #Inflam anemia: Low iron, high/normal ferritin, low TIBC, low transferrin, low saturation Patient at baseline has low hemoglobin. Hyperuricemia could be causing oxidative stress, could be 2/2 to vol. overload status diluting blood, most likely some form of inflam anemia. Given 2 units pRBCs with HDS, held until HDS due to vol. overload status. Another 1 unit given today during HDS. DDx: GI Bleed, Cancer, chronic anemia, medication induced FOBT: None NSAID use: Unsure Blood thinner use:Unsure Hgb 6.7, transfusion held due to concern for overload (TACO) -Plan to transfuse during HDS Plan: ? Trend CBC ? Iron studies panel with ferritin; Iron: 18 (low), TIBC: 218 (low), Sat: 8 (low), Unsat: 200 (low), ferritin: 147 (normal) ? Reticulocyte Count: Abs: 23.5, Immature: 9.5% Retic Hgb: 29.6 ? Peripheral blood smear: Pending ? Transfusion protocol hemoglobin below 7, ? Avoiding any NSAIDs ? SCDs ? Protonix 40 mg daily #Acute kidney injury on CKD - on HDS day 2/3 #Hyperuricemia #Secondary Hyperparathyroidism #Anion gap metabolic acidosis DDx: Prerenal versus ATN versus obstructive Likely related to Uremia. Patient should have had dialysis had it not been for insurance lapses. EGFR:5, BUN:106, Cr: 12.5, A, K: 5.2. SOB and +2 pitting edema. HTN most likely due to vol overload as well Calcium 6.6, corrected: 7.2, PTH: elevated Plan: ?Nephrology (Dr. Aaron) consulted, appreciate recs -Ca acetate 667 TID -D3 MWF -Once BPs lower transfuse pRBCs -Inpatient dialysis x3days in a row then transition to outpatient ?Strict I's and O's ?Lasix 40 mg IV ?Sodium Bicarb 50 mL x1 ?Renal panel 1999 ?IR dialysis cath tomorrow with HD ?Calcium gluconate 1 g and Albuterol x1 #Hypertensive emergency Initial BP: 191/93 in ED. 10mg hydralazine given in ED. Currently 170/92. SOB w/ +2 pitting edema. Most likely 2/2 vol overload Plan: ? Do not correct systolic blood pressure more than 25% within the first 24 hours ? Labetalol 10 mg IV Q2H PRN for SBP above 180, hold if HR is below 65 #Elevated troponins ).072 --> 0.07 --> 0.072 Slightly elevated, likely demand ischemia NSTEMI type II Plan: Troponin at 1999 #CHF Unsure if it is reduced [employer] is Dr. Parham Plan: ?Echo ?Telemetry #Volume overload in lungs #PNA r/o Orignally worked up for PNA. Upon review of xray appears to be more vascular congestion due to volume overload (perihilar lymhadenipathy, kaylyn b-lines). PNA considered b/c patient had viral symptomatology of SOB and cough. ED CXR: diffuse significant LL lung PNA. Crackles in left lung base on physical. patient had viral symptomatology of SOB and cough Plan: -Amox/Clav 875 BID - DC -Aizthro 500mg PO QD - DC -TB skin test -Flu/covid screen -Sputum culture and gram stain #UTI WBC: 20 Plan: -Cross coverage of PNA tx augmentin + Azithro #Hypercholesterolemia Cholesterol: 236, LDL: 182, HDL: 32 Plan: -Continue 40mg PO HS #Right ankle pain #most likely 2/2 acute gout flare #or R ankle sprain Patient has history of R ankle fracture s/p surgery s/p pin removal sx. No recent history of trauma to the ankle. XRAY: suspicious for fractures proximal and distal phalanges 5th digit. Patient reports hx of acute gout flare ups with worsening kidney function. Plan: -No opiates due to hx of Polysubstance use/addiction -Hold NSAIDS due to low kidney function -Per open evidence there is no acute gout flare medication available with these comorbidities. #T2DM (Non-insulin) Plan: -Bedside glucose -ISS -D50 prn hypoglycemia Health Maintenance: DVT prophylaxis: SCDs Diet: Carb consistent Zimmerman: None Lines: PIV Supplemental O2: Nasal cannula CODE STATUS: Full Disposition: Admitted to the hospital for fluid overload and likely PNA Patient seen and reviewed with attending Dr. Mohr and supervising resident Dr. Duke. Note written by Dennis Alexandra MD PGY-1 Attending Provider Attestation/Addendum Patient seen and examined at bedside with resident. I agree with assessment and plan as documented above. Patient undergoing 2nd session of HD today, 3rd one will be done tomorrow and then will need HD chair and to have PPD read and can be DCd thereafter. Joce Mohr MD
[2024-11-27 16:32] LABS: Hematocrit 25.3 % (41.0-53.0); Hemoglobin 8.9 g/dL (13.5-16.0)
[2024-11-27] MEDS: COLCHICINE 0.6 MG TABLET 0.3 MG PO (16:42)
[2024-11-27] MEDS: INSULIN LISPRO (AdmeLOG) 1 UNIT/0.01 ML UNIT SC ×2 (17:27→20:18)
[2024-11-27] MEDS: ATORVASTATIN CALCIUM 20 MG TABLET 40 MG PO (20:17)
[2024-11-28] VITALS (29 sets, daily range): BP systolic 153–185; BP diastolic 81–106; PULSE 69–86; RESP 8–96; TEMP 36.1–37; O2SAT 91–95
[2024-11-28] MEDS: LABETALOL INJ 5 MG/ML VIAL 20 ML 10 MG IVP (05:17)
--- NOTE | 2024-11-28 05:28 | PC.NURSE ---
PATIENT COMPLAINING OF LEG CRAMPS THAT COMES AND GOES. SAID HE WILL LET DAY TEAM KNOW. NO NEW ORDERS AT THIS TIME
[2024-11-28 06:44] LABS: Basophils # (Auto) 0.0 Thou/mm3 (0.0-0.2); Basophils % (Auto) 0 % (0-2.5); Eosinophils # (Auto) 0.2 Thou/mm3 (0.0-0.5); Eosinophils % (Auto) 2 % (0-10); Hematocrit 23.9 % (41.0-53.0); Immature Granulocytes Auto 0.05 Thou/mm3 (0.00-0.00); Lymphocytes # (Auto) 0.9 Thou/mm3 (1.0-4.8); Lymphocytes % (Auto) 10 % (10-50); Mean Corpuscular HGB Conc 33.9 g/dl (31.0-37.0); Mean Corpuscular Hemoglobin 28.8 pg (25.0-35.0); Mean Corpuscular Volume 85 fL (80-100); Monocytes # (Auto) 0.8 Thou/mm3 (0.0-0.8); Monocytes % (Auto) 9 % (0-12); Neutrophils # (Auto) 6.3 Thou/mm3 (1.8-7.7); Neutrophils % (Auto) 78 % (37-80); Nucleated Red Blood Cell # 0.00 Thou/mm3 (0.00-0.00); Nucleated Red Blood Cell % 0 /100 WBC (0); Platelet Count 210 Thou/mm3 (140-440); RDW Standard Deviation 39.8 fL (35.1-43.9); Red Blood Count 2.81 Miln/mm3 (4.50-5.90); White Blood Count 8.2 Thou/mm3 (3.8-10.6)
[2024-11-28 07:00] LABS: Hemoglobin 8.1 g/dL (13.5-16.0)
[2024-11-28 07:35] LABS: Alanine Aminotransferase < 7 U/L (10-49); Albumin, Serum 3.2 gm/dL (3.5-5.0); Albumin/Globulin Ratio 1.4 (1.2-2.2); Alkaline Phosphatase 49 U/L (46-116); Anion Gap 14 (7-16); Aspartate Amino Transferase < 8 U/L (0-34); BUN/Creatinine Ratio 7 Ratio (12-20); Bilirubin,Total 0.7 mg/dL (0.3-1.2); Blood Urea Nitrogen 62 mg/dL (9-23); Calcium 8.0 mg/dL (8.3-10.6); Calcium (Corrected) 8.6 mg/dL (8.5-10.1); Carbon Dioxide 23.5 mMol/L (20.0-31.0); Chloride 99 mMol/L (98-107); Creatinine (Component) 8.3 mg/dL (0.6-1.3); Estimated Creatinine Clearance 16.6 mL/min (>60); Globulin 2.3 gm/dL (2.3-3.5); Glucose 179 mg/dL (74-106); Magnesium 1.2 mg/dL (1.6-2.6); Osmolality,Calculated 293 (275-295); Phosphorous 8.4 mg/dL (2.4-5.1); Potassium 4.4 mMol/L (3.4-5.1); Sodium 136 mMol/L (136-145); Total Protein 5.5 gm/dL (5.7-8.2); eGFR 7 See Note
[2024-11-28 07:44] LABS: Uric Acid 5.8 mg/dL (3.7-9.2)
[2024-11-28] MEDS: INSULIN LISPRO (AdmeLOG) 1 UNIT/0.01 ML UNIT SC ×3 (07:49→21:49)
[2024-11-28] MEDS: CALCIUM ACETATE 667 MG TABLET 1334 MG PO ×3 (07:49→17:00)
--- NOTE | 2024-11-28 11:03 | PC.NURSE ---
charted on wrong pt, pt is in dailysis at this time; for 8am and 10am charting
[2024-11-28] MEDS: HYDROcodone/APAP 5/325 TABLET 1 TAB PO ×2 (11:39→21:39)
[2024-11-28] MEDS: PANTOPRAZOLE 40 MG TABLET PO (12:28)
[2024-11-28] MEDS: Magnesium Sulfate 2 GM Ivpb 2 GM/50 ML BAG IV (12:30)
[2024-11-28] MEDS: IRON SUCROSE CPLX INJ 20 MG/ML VIAL 5 ML 100 MG IVP (12:30)
--- NOTE | 2024-11-28 14:25 | ESPR_ITS ---
Documentation for date of: 11/28/24 Subjective Subjective Interval history: 2 fluids of renal removed yesterday, bicarb stopped, calcitriol continued and getting 2mg ca acetate with meals. Keflex started because sputum cultures +Klebsiella. Patient examined bedside breathing improved laying flat without respiratory distress. No complaints of chest pain or SOB. No BMs just gas, but thinks that may change today. Exam Vital Signs Temp Pulse Resp BP Pulse Ox O2 Del Method O2 Flow Rate 97.7 F 73 18 185/96 H 94 L CPAP 2 11/28/24 12:11/28/24 12:11/28/24 12:11/28/24 12:11/28/24 12:11/28/24 12:00 11/28/24 12:00 Narrative Exam GENERAL APPEARANCE: Alert and interactive, follows commands, no acute distress, morbidly obese HEENT: Non-traumatic. PERRL, pale conjunctiva, eyelid no trauma, Mucous membrane moist. NECK: Supple, nontender, no nuchal rigidity. CHEST: No tenderness, no crepitus, no paradoxical movement, no retractions. LUNGS: Soft crackles bilateral lung base HEART: Regular rate, regular rhythm, no murmur, no gallops. No JVD noted no hepatojugular reflux seen ABDOMEN: Soft, positive bowel sounds, nondistended, no guarding, nontender, no rebound, no masses, NEUROLOGICAL: Gross motor function intact sensory function intact, Appropriate for age. MUSCULOSKELETAL: low back nontender, full range of motion. EXTREMITIES: Nontender, full range of motion. +2 pitting edema. Improved R ankle tenderness swelling. L+R foot in ankle brace. SKIN: Color pale, dry, no rash, no lacerations, no abrasions, no contusions. Objective Labs 11/30/24 05:10 11/30/24 05:10 Labs: Laboratory Results - last 24 hr 11/27/24 11/28/24 15:17 06:23 WBC 8.2 RBC 2.81 L Hgb 8.9 L D 8.1 L Hct 25.3 L 23.9 L MCV 85 MCH 28.8 MCHC 33.9 RDW Std Deviation 39.8 Plt Count 210 Neut % (Auto) 78 Lymph % (Auto) 10 [place] % (Auto) 9 Eos % (Auto) 2 Baso % (Auto) 0 Neut # (Auto) 6.3 Lymph # (Auto) 0.9 L [place] # (Auto) 0.8 Eos # (Auto) 0.2 Baso # (Auto) 0.0 Immature Gran # (Auto) 0.05 H Absolute Nucleated RBC 0.00 Immature Gran % 1 H Nucleated RBC % 0 Sodium 136 Potassium 4.4 Chloride 99 Carbon Dioxide 23.5 Anion Gap 14 BUN 62 H Creatinine 8.3 H* D Estim Creat Clear Calc 16.6 L eGFR 7 L* BUN/Creatinine Ratio 7 L Glucose 179 H Calculated Osmolality 293 Uric Acid 5.8 Calcium 8.0 L Corrected Calcium 8.6 Phosphorus 8.4 H Magnesium 1.2 L Total Bilirubin 0.7 AST < 8 ALT < 7 L Alkaline Phosphatase 49 Total Protein 5.5 L Albumin 3.2 L Globulin 2.3 Albumin/Globulin Ratio 1.4 ABG Interpretation ABG results: 11/26/24 11:43 ABG pH 7.29 L ABG pCO2 30 L ABG pO2 82 L ABG HCO3 14 L ABG O2 Saturation 96 ABG Base Excess -11 L Quality Measures Quality Measures none Assessment & Plan Assessment Current Active Medications: Generic Name Dose Route Start Last Admin Trade Name Freq PRN Reason Stop Dose Admin Acetaminophen 650 mg 11/25/24 17:58 Acetaminophen 325 Mg Tablet PO 12/25/24 17:57 Q6H PRN for fever >100.4 or pain 1-3 Hydrocodone Bitart/Acetaminophen 1 tab 11/28/24 11:23 11/28/24 11:39 Hydrocodone/Apap 5/325 Tablet PO 11/30/24 18:08 1 tab Q8HR PRN Administration PAIN SCALE 4-6 (Moderate Albuterol/Ipratropium 3 ml 11/25/24 18:09 Albuterol/Ipratropium (Duoneb) Rt Beryl 3 Ml Nebu INH 12/25/24 18:59 Q6HRRT PRN sob Amoxicillin/Clavulanate Potassium 500 mg 11/28/24 17:30 Amoxicillin/Pot Clav 500 Mg Tablet PO 12/05/24 17:29 BIDWM KATHARINA Atorvastatin Calcium 40 mg 11/25/24 21:00 11/27/24 20:17 Atorvastatin Calcium 20 Mg Tablet PO 12/25/24 20:59 40 mg HS KATHARINA Administration Calcitriol 0.25 mcg 11/27/24 09:00 11/28/24 12:28 Calcitriol 0.25 Mcg Capsule PO 12/27/24 08:59 0.25 mcg QDAY KATHARINA Administration Calcium Acetate 1,334 mg 11/27/24 12:30 11/28/24 12:28 Calcium Acetate 667 Mg Tablet PO 12/27/24 12:29 1,334 mg TIDWM KATHARINA Administration Dextrose 25 ml 11/25/24 18:15 Dextrose 50%-Water Inj 50 Ml Syringe IV 12/25/24 18:14 Q15MIN PRN BG 50-70 responsive npo pt Dextrose 50 ml 11/25/24 18:15 Dextrose 50%-Water Inj 50 Ml Syringe IV 12/25/24 18:14 Q15MIN PRN BG <50 OR BG <70 & pt unresponsive Glucagon 1 mg 11/25/24 18:15 Glucagon Inj 1 Mg Vial IM Q15MIN PRN BG <70, and no IV access Heparin Sodium (Porcine) 4,100 unit 11/26/24 12:39 11/27/24 11:22 Heparin Sod Inj 1000 Unit/Ml Vial 10 Ml INDWELLCAT 12/10/24 12:38 4,100 unit PRN PRN Administration DIALYSIS Albumin Human 25 gm in 100 mls @ 100 mls/min 11/26/24 12:39 Albuminar-25 Ivpb IV PRN PRN DIALYSIS Insulin Human Lispro 0 unit 11/25/24 21:00 11/28/24 12:31 Insulin Lispro (Admelog) 1 Unit/0.01 Ml Unit SC 12/25/24 20:59 Not Given ACHS KATHARINA Protocol Iron Sucrose 100 mg 11/27/24 09:00 11/28/24 12:30 Iron Sucrose Cplx Inj 20 Mg/Ml Vial 5 Ml IVP 12/06/24 08:59 100 mg DAILY KATHARINA Administration Labetalol HCl 10 mg 11/25/24 18:24 11/28/24 05:17 Labetalol Inj 5 Mg/Ml Vial 20 Ml IVP 12/25/24 18:29 10 mg Q2H PRN Administration SBP above 180 Pantoprazole Sodium 40 mg 11/27/24 09:00 11/28/24 12:28 Pantoprazole 40 Mg Tablet PO 12/27/24 08:59 40 mg QDAY KATHARINA Administration Protocol Prednisone 20 mg 11/28/24 14:30 Prednisone 20 Mg Tablet PO 12/04/24 14:29 QDAY KATHARINA Sennosides 1 tab 11/25/24 17:58 Senna Tablet PO 12/25/24 17:57 QDAY PRN constipation Protocol Plan 49 male patient with significant history of DM2(not on insulin), hypertension, chronic kidney disease, not taking any medication, came in for evaluation regarding worsening shortness of breath, dyspnea on exertion, dizziness, palpitation especially on exertion and activity. Patient is volume overloaded most likely 2/2 to delay in HDS needed for ESRD as evidenced by his renal panel. Also f/t/h PNA on CXR also evidenced by B symptoms on HPI and physical exam. Plan for dialysis, diuresis, electrolyte management of ESRD, and abx for PNA. pRBCs initally held due to vol overload status despite hgb:6. Given 2 units pRBCs today following HDS. Dialysis day 2 given 1 unit pRBCs. No RBCs given Day3 of dialysis. Improved overall symptoms BP 159/87, sputum culture klebsiella +. #acute on chronic renal failure - on HDS day 2/3 c/b #Hyperuricemia #Secondary Hyperparathyroidism #Anion gap metabolic acidosis - Resolving DDx: Prerenal versus ATN versus obstructive Likely related to Uremia. Patient should have had dialysis had it not been for insurance lapses. EGFR:5, BUN:106, Cr: 12.5, A, K: 5.2. SOB and +2 pitting edema. HTN most likely due to vol overload as well Calcium 6.6, corrected: 7.2 --> 8.6, PTH: elevated Plan: ?Nephrology (Dr. Aaron) consulted, appreciate recs -Ca acetate 667 TID -D3 MWF -Once BPs lower transfuse pRBCs -Inpatient dialysis x3days in a row then transition to outpatient ?Strict I's and O's ?Lasix 40 mg IV ?Sodium Bicarb 50 mL x1 ?Renal panel 1999 ?IR dialysis cath tomorrow with HD ?Calcium gluconate 1 g and Albuterol x1 #Acute on chronic anemia #Inflam anemia: Low iron, high/normal ferritin, low TIBC, low transferrin, low saturation Patient at baseline has low hemoglobin. Hyperuricemia could be causing oxidative stress, could be 2/2 to vol. overload status diluting blood, most likely some form of inflam anemia. pRBCs given DDx: GI Bleed, Cancer, chronic anemia, medication induced FOBT: None NSAID use: Unsure Blood thinner use:Unsure Hgb 6.7 --> 8.1 Plan: ? Trend CBC ? Iron studies panel with ferritin; Iron: 18 (low), TIBC: 218 (low), Sat: 8 (low), Unsat: 200 (low), ferritin: 147 (normal) ? Reticulocyte Count: Abs: 23.5, Immature: 9.5% Retic Hgb: 29.6 ? Peripheral blood smear: Retic abs: 23.5 ? Transfusion protocol hemoglobin below 7 ? SCDs ? Protonix 40 mg daily #Hypertensive emergency Initial BP: 191/93 in ED. 10mg hydralazine given in ED. Currently 170/92. SOB w/ +2 pitting edema. Most likely 2/2 vol overload Plan: ? Do not correct systolic blood pressure more than 25% within the first 24 hours ? Labetalol 10 mg IV Q2H PRN for SBP above 180, hold if HR is below 65 - Nifedpine 30mg can also be given #Elevated troponins ).072 --> 0.07 --> 0.072 Slightly elevated, likely demand ischemia NSTEMI type II Plan: Troponin at 2000 #CHF Unsure if it is reduced Supervisor [employer] is Dr. Parham Plan: ?Echo ?Telemetry #Volume overload in lungs #PNA r/o Orignally worked up for PNA. PNA considered b/c patient had viral symptomatology of SOB and cough. ED CXR: diffuse significant LL lung PNA. Crackles in left lung base on physical. patient had viral symptomatology of SOB and cough. Sputum culture: Klebsiella positive Plan: -Keflex 500 BID -Aizthro 500mg PO QD - DC -Augmentin - DC -TB skin test -Flu/covid screen -Sputum culture and gram stain: Klebsiella #UTI WBC: 20 Plan: -Cross coverage of PNA tx augmentin + Azithro #Hypercholesterolemia Cholesterol: 236, LDL: 182, HDL: 32 Plan: -Continue 40mg PO HS #Right ankle pain #most likely 2/2 acute gout flare #or R ankle sprain Patient has history of R ankle fracture s/p surgery s/p pin removal sx. No recent history of trauma to the ankle. XRAY: suspicious for fractures proximal and distal phalanges 5th digit. Patient reports hx of acute gout flare ups with worsening kidney function. Plan: -Colchicine given -Narco QHRs PRN -Prednisone 20mg for 7 days #T2DM (Non-insulin) Plan: -Bedside glucose -ISS -D50 prn hypoglycemia Health Maintenance: DVT prophylaxis: SCDs Diet: Carb consistent Zimmerman: None Lines: PIV Supplemental O2: Nasal cannula CODE STATUS: Full Disposition: Admitted to the hospital for HDS, fluid overload and likely PNA Patient seen and reviewed with attending Dr. Mohr and supervising resident Dr. Duke. Note written by Dennis Alexandra MD PGY-1 Attending Provider Attestation/Addendum Patient seen and examined at bedside with resident. Agree with assessment and plan as documented above. Patient will undergo one additional session of HD today. Once HD chair is obtained, plan to discharge to home Joce Mohr MD
[2024-11-28] MEDS: NIFEdipine XL 30 MG TABCR PO (17:49)
[2024-11-28] MEDS: ATORVASTATIN CALCIUM 20 MG TABLET 40 MG PO (21:39)
[2024-11-29] VITALS (11 sets, daily range): BP systolic 148–176; BP diastolic 77–99; PULSE 64–86; RESP 12–94; TEMP 36.1–36.9; O2SAT 92–98; BMI 52.6
[2024-11-29 06:15] LABS: Basophils # (Auto) 0.0 Thou/mm3 (0.0-0.2); Basophils % (Auto) 0 % (0-2.5); Eosinophils # (Auto) 0.0 Thou/mm3 (0.0-0.5); Eosinophils % (Auto) 0 % (0-10); Hematocrit 26.5 % (41.0-53.0); Hemoglobin 9.0 g/dL (13.5-16.0); Immature Granulocytes Auto 0.04 Thou/mm3 (0.00-0.00); Lymphocytes # (Auto) 0.5 Thou/mm3 (1.0-4.8); Lymphocytes % (Auto) 6 % (10-50); Mean Corpuscular HGB Conc 34.0 g/dl (31.0-37.0); Mean Corpuscular Hemoglobin 29.0 pg (25.0-35.0); Mean Corpuscular Volume 86 fL (80-100); Monocytes # (Auto) 0.4 Thou/mm3 (0.0-0.8); Monocytes % (Auto) 5 % (0-12); Neutrophils # (Auto) 7.1 Thou/mm3 (1.8-7.7); Neutrophils % (Auto) 88 % (37-80); Nucleated Red Blood Cell # 0.00 Thou/mm3 (0.00-0.00); Nucleated Red Blood Cell % 0 /100 WBC (0); Platelet Count 238 Thou/mm3 (140-440); RDW Standard Deviation 39.1 fL (35.1-43.9); Red Blood Count 3.10 Miln/mm3 (4.50-5.90); White Blood Count 8.1 Thou/mm3 (3.8-10.6)
[2024-11-29 07:20] LABS: Alanine Aminotransferase < 7 U/L (10-49); Albumin, Serum 3.4 gm/dL (3.5-5.0); Albumin/Globulin Ratio 1.3 (1.2-2.2); Alkaline Phosphatase 56 U/L (46-116); Anion Gap 14 (7-16); Aspartate Amino Transferase 10 U/L (0-34); BUN/Creatinine Ratio 8 Ratio (12-20); Bilirubin,Total 0.5 mg/dL (0.3-1.2); Blood Urea Nitrogen 56 mg/dL (9-23); Calcium 8.3 mg/dL (8.3-10.6); Calcium (Corrected) 8.8 mg/dL (8.5-10.1); Carbon Dioxide 24.5 mMol/L (20.0-31.0); Chloride 97 mMol/L (98-107); Creatinine (Component) 7.1 mg/dL (0.6-1.3); Estimated Creatinine Clearance 19.4 mL/min (>60); Globulin 2.6 gm/dL (2.3-3.5); Glucose 259 mg/dL (74-106); Magnesium 1.7 mg/dL (1.6-2.6); Osmolality,Calculated 294 (275-295); Phosphorous 6.5 mg/dL (2.4-5.1); Potassium 5.1 mMol/L (3.4-5.1); Sodium 135 mMol/L (136-145); Total Protein 6.0 gm/dL (5.7-8.2); eGFR 9 See Note
[2024-11-29] MEDS: CALCIUM ACETATE 667 MG TABLET 1334 MG PO ×3 (07:46→16:47)
[2024-11-29] MEDS: INSULIN LISPRO (AdmeLOG) 1 UNIT/0.01 ML UNIT SC ×4 (07:46→22:16)
[2024-11-29] MEDS: Magnesium Sulfate 4 GM Ivpb 4 GM/50 ML BAG IV (08:37)
[2024-11-29] MEDS: PANTOPRAZOLE 40 MG TABLET PO (08:38)
[2024-11-29] MEDS: IRON SUCROSE CPLX INJ 20 MG/ML VIAL 5 ML 100 MG IVP (08:48)
[2024-11-29] MEDS: INSULIN DEGLUDEC 5 UNIT/0.05 ML (PER 5 UNITS) SC (08:51)
--- NOTE | 2024-11-29 09:26 | PC.SS ---
SS submitted PPD results and updated clinicals to MARI Jacobson. SS spoke to Flori who stated we are in the insurance auth phase of things as information was received on Friday and no one was in office to process.
[2024-11-29] MEDS: INSULIN LISPRO (AdmeLOG) 1 UNIT/0.01 ML UNIT 2 UNIT SC ×2 (12:01→16:48)
--- NOTE | 2024-11-29 19:21 | ESPR_ITS ---
<Statement entered by Soledad Beavers MD - 11/29/24 21:03> Patient was seen and examined at bedside. Patient denied any new symptoms. His PPD test came back negative, was still pending chair time for discharge. His blood pressure under well-controlled and the patient in a good spirits today. - Patient's plan and care discussed with my attending, Dr. Mary Beavers MD Internal Medicine PGY-3 Documentation for date of: 11/29/24 Subjective Subjective Interval history: Calcitriol continued and getting 2mg ca acetate with meals. Keflex started because sputum cultures +Klebsiella. Patient awaiting dialysis chair placement. Patient examined bedside breathing improved laying flat without respiratory distress. No complaints of chest pain or SOB. +BM solid and brown. Able to walk today Exam Vital Signs Temp Pulse Resp BP Pulse Ox O2 Del Method O2 Flow Rate 97.1 F 79 22 H 162/91 H 94 L Room Air 2 11/29/24 16:00 11/29/24 16:11/29/24 16:11/29/24 16:11/29/24 16:11/29/24 16:00 11/28/24 12:00 Narrative Exam GENERAL APPEARANCE: Alert and interactive, follows commands, no acute distress, morbidly obese HEENT: Non-traumatic. PERRL, pale conjunctiva, eyelid no trauma, Mucous membrane moist. NECK: Supple, nontender, no nuchal rigidity. CHEST: No tenderness, no crepitus, no paradoxical movement, no retractions. LUNGS: Soft crackles bilateral lung base HEART: Regular rate, regular rhythm, no murmur, no gallops. No JVD noted no hepatojugular reflux seen ABDOMEN: Soft, positive bowel sounds, nondistended, no guarding, nontender, no rebound, no masses, NEUROLOGICAL: Gross motor function intact sensory function intact, Appropriate for age. MUSCULOSKELETAL: low back nontender, full range of motion. EXTREMITIES: Nontender, full range of motion. +1 pitting edema. Improved R ankle tenderness swelling. L+R foot in ankle brace. SKIN: Color pale, dry, no rash, no lacerations, no abrasions, no contusions. Objective Labs 11/30/24 05:10 11/30/24 05:10 Labs: Laboratory Results - last 24 hr 11/29/24 05:29 WBC 8.1 RBC 3.10 L Hgb 9.0 L Hct 26.5 L MCV 86 MCH 29.0 MCHC 34.0 RDW Std Deviation 39.1 Plt Count 238 Neut % (Auto) 88 H Lymph % (Auto) 6 L Gaines % (Auto) 5 Eos % (Auto) 0 Baso % (Auto) 0 Neut # (Auto) 7.1 Lymph # (Auto) 0.5 L Gaines # (Auto) 0.4 Eos # (Auto) 0.0 Baso # (Auto) 0.0 Immature Gran # (Auto) 0.04 H Absolute Nucleated RBC 0.00 Immature Gran % 1 H Nucleated RBC % 0 Sodium 135 L Potassium 5.1 D Chloride 97 L Carbon Dioxide 24.5 Anion Gap 14 BUN 56 H Creatinine 7.1 H* D Estim Creat Clear Calc 19.4 L eGFR 9 L* BUN/Creatinine Ratio 8 L Glucose 259 H D Calculated Osmolality 294 Calcium 8.3 Corrected Calcium 8.8 Phosphorus 6.5 H Magnesium 1.7 Total Bilirubin 0.5 AST 10 ALT < 7 L Alkaline Phosphatase 56 Total Protein 6.0 Albumin 3.4 L Globulin 2.6 Albumin/Globulin Ratio 1.3 ABG Interpretation ABG results: 11/26/24 11:43 ABG pH 7.29 L ABG pCO2 30 L ABG pO2 82 L ABG HCO3 14 L ABG O2 Saturation 96 ABG Base Excess -11 L Quality Measures Quality Measures none Assessment & Plan Assessment Current Active Medications: Generic Name Dose Route Start Last Admin Trade Name Freq PRN Reason Stop Dose Admin Acetaminophen 650 mg 11/25/24 17:58 Acetaminophen 325 Mg Tablet PO 12/25/24 17:57 Q6H PRN for fever >100.4 or pain 1-3 Hydrocodone Bitart/Acetaminophen 1 tab 11/28/24 11:23 11/28/24 21:39 Hydrocodone/Apap 5/325 Tablet PO 11/30/24 18:08 1 tab Q8HR PRN Administration PAIN SCALE 4-6 (Moderate Albuterol/Ipratropium 3 ml 11/25/24 18:09 Albuterol/Ipratropium (Duoneb) Rt Berly 3 Ml Nebu INH 12/25/24 18:59 Q6HRRT PRN sob Atorvastatin Calcium 40 mg 11/25/24 21:00 11/28/24 21:39 Atorvastatin Calcium 20 Mg Tablet PO 12/25/24 20:59 40 mg HS KATHARINA Administration Calcitriol 0.25 mcg 11/27/24 09:00 11/29/24 08:38 Calcitriol 0.25 Mcg Capsule PO 12/27/24 08:59 0.25 mcg QDAY KATHARINA Administration Calcium Acetate 1,334 mg 11/27/24 12:30 11/29/24 16:47 Calcium Acetate 667 Mg Tablet PO 12/27/24 12:29 1,334 mg TIDWM KATHARINA Administration Cephalexin HCl 500 mg 11/28/24 21:00 11/29/24 08:37 Cephalexin 250 Mg Capsule PO 12/05/24 20:59 500 mg BID KATHARINA Administration Dextrose 25 ml 11/25/24 18:15 Dextrose 50%-Water Inj 50 Ml Syringe IV 12/25/24 18:14 Q15MIN PRN BG 50-70 responsive npo pt Dextrose 50 ml 11/25/24 18:15 Dextrose 50%-Water Inj 50 Ml Syringe IV 12/25/24 18:14 Q15MIN PRN BG <50 OR BG <70 & pt unresponsive Glucagon 1 mg 11/25/24 18:15 Glucagon Inj 1 Mg Vial IM Q15MIN PRN BG <70, and no IV access Heparin Sodium (Porcine) 4,100 unit 11/26/24 12:39 11/27/24 11:22 Heparin Sod Inj 1000 Unit/Ml Vial 10 Ml INDWELLCAT 12/10/24 12:38 4,100 unit PRN PRN Administration DIALYSIS Albumin Human 25 gm in 100 mls @ 100 mls/min 11/26/24 12:39 Albuminar-25 Ivpb IV PRN PRN DIALYSIS Insulin Human Lispro 0 unit 11/25/24 21:00 11/29/24 16:47 Insulin Lispro (Admelog) 1 Unit/0.01 Ml Unit SC 12/25/24 20:59 4 unit ACHS KATHARINA Administration Protocol Insulin Human Lispro 2 unit 11/29/24 11:30 11/29/24 16:48 Insulin Lispro (Admelog) 1 Unit/0.01 Ml Unit SC 12/29/24 11:29 2 unit AC KATHARINA Administration Iron Sucrose 100 mg 11/27/24 09:00 11/29/24 08:48 Iron Sucrose Cplx Inj 20 Mg/Ml Vial 5 Ml IVP 12/06/24 08:59 100 mg DAILY KATHARINA Administration Labetalol HCl 10 mg 11/25/24 18:24 11/28/24 05:17 Labetalol Inj 5 Mg/Ml Vial 20 Ml IVP 12/25/24 18:29 10 mg Q2H PRN Administration SBP above 180 Pantoprazole Sodium 40 mg 11/27/24 09:00 11/29/24 08:38 Pantoprazole 40 Mg Tablet PO 12/27/24 08:59 40 mg QDAY KATHARINA Administration Protocol Prednisone 20 mg 11/28/24 14:30 11/29/24 08:38 Prednisone 20 Mg Tablet PO 12/04/24 14:29 20 mg QDAY KATHARINA Administration Sennosides 1 tab 11/25/24 17:58 11/28/24 18:05 Senna Tablet PO 12/25/24 17:57 1 tab QDAY PRN Administration constipation Protocol Plan 49 male patient with significant history of DM2(not on insulin), hypertension, chronic kidney disease, not taking any medication, came in for evaluation regarding worsening shortness of breath, dyspnea on exertion, dizziness, palpitation especially on exertion and activity. Patient is volume overloaded most likely 2/2 to delay in HDS needed for ESRD as evidenced by his renal panel. Also f/t/h PNA on CXR also evidenced by B symptoms on HPI and physical exam. Plan for dialysis, diuresis, electrolyte management of ESRD, and abx for PNA. pRBCs initally held due to vol overload status despite hgb:6. Given 2 units pRBCs following HDS. Dialysis day 2 given 1 unit pRBCs. No RBCs given Day3 of dialysis. Improved overall symptoms BP 159/87, sputum culture klebsiella +. Patient much improved, just waiting dialysis chair placement. #Acute on chronic anemia #Anemia of chronic disease #Inflam anemia: Low iron, high/normal ferritin, low TIBC, low transferrin, low saturation Patient at baseline has low hemoglobin. Hyperuricemia could be causing oxidative stress, could be 2/2 to vol. overload status diluting blood, most likely some form of inflam anemia. pRBCs given DDx: GI Bleed, Cancer, chronic anemia, medication induced FOBT: None NSAID use: Unsure Blood thinner use:Unsure Hgb 6.7 --> 8.1 Plan: ? Trend CBC ? Iron studies panel with ferritin; Iron: 18 (low), TIBC: 218 (low), Sat: 8 (low), Unsat: 200 (low), ferritin: 147 (normal) ? Reticulocyte Count: Abs: 23.5, Immature: 9.5% Retic Hgb: 29.6 ? Peripheral blood smear: Retic abs: 23.5 ? Transfusion protocol hemoglobin below 7 ? SCDs ? Protonix 40 mg daily #Acute kidney injury on CKD - on HDS day 2/3 #Hyperuricemia #Secondary Hyperparathyroidism #Anion gap metabolic acidosis - Resolving DDx: Prerenal versus ATN versus obstructive Likely related to Uremia. Patient should have had dialysis had it not been for insurance lapses. EGFR:5, BUN:106, Cr: 12.5, A, K: 5.2. SOB and +2 pitting edema. HTN most likely due to vol overload as well Calcium 6.6, corrected: 7.2 --> 8.6, PTH: elevated Plan: ?Nephrology (Dr. Aaron) consulted, appreciate recs -Ca acetate 667 TID -D3 MWF -Once BPs lower transfuse pRBCs -Inpatient dialysis x3days in a row then transition to outpatient ?Strict I's and O's ?Lasix 40 mg IV ?Sodium Bicarb 50 mL x1 ?Renal panel 1999 ?IR dialysis cath tomorrow with HD ?Calcium gluconate 1 g and Albuterol x1 #Hypertensive emergency Initial BP: 191/93 in ED. 10mg hydralazine given in ED. Currently 170/92. SOB w/ +2 pitting edema. Most likely 2/2 vol overload Plan: ? Do not correct systolic blood pressure more than 25% within the first 24 hours ? Labetalol 10 mg IV Q2H PRN for SBP above 180, hold if HR is below 65 - Nifedpine 30mg can also be given #Elevated troponins ).072 --> 0.07 --> 0.072 Slightly elevated, likely demand ischemia NSTEMI type II Plan: Troponin at 1999 #CHF Unsure if it is reduced [employer] is Dr. Parham Plan: ?Echo ?Telemetry #Pulmonary congestion #PNA r/o Orignally worked up for PNA. PNA considered b/c patient had viral symptomatology of SOB and cough. ED CXR: diffuse significant LL lung PNA. Crackles in left lung base on physical. patient had viral symptomatology of SOB and cough. Sputum culture: Klebsiella positive Plan: -Keflex 500 BID -Aizthro 500mg PO QD - DC -Augmentin - DC -TB skin test -Flu/covid screen -Sputum culture and gram stain: Klebsiella #UTI - resolved WBC: 20 Plan: -Cross coverage of PNA tx augmentin + Azithro #Hypercholesterolemia Cholesterol: 236, LDL: 182, HDL: 32 Plan: -Continue 40mg PO HS #Right ankle pain - improved #most likely 2/2 acute gout flare #or R ankle sprain Patient has history of R ankle fracture s/p surgery s/p pin removal sx. No recent history of trauma to the ankle. XRAY: suspicious for fractures proximal and distal phalanges 5th digit on Left foot. Patient reports hx of acute gout flare ups with worsening kidney function. Plan: -Colchicine given -Narco QHRs PRN -Prednisone 20mg for 7 days #T2DM (Non-insulin) Plan: -Bedside glucose -ISS -D50 prn hypoglycemia Health Maintenance: DVT prophylaxis: SCDs Diet: Carb consistent Zimmerman: None Lines: PIV Supplemental O2: Nasal cannula CODE STATUS: Full Disposition: Admitted to the hospital for HDS, fluid overload and likely PNA Patient seen and reviewed with attending Dr. Hernandez and supervising resident Dr. Duke. Note written by Dennis Alexandra MD PGY-1 Attending Provider Attestation/Addendum I have examined the patient, reviewed labs and imaging findings, discussed the case with the resident(s), and reviewed entered orders. I agree with the plan of care as outlined in this note, with these additional summaries/recommendations: Patient seen at bedside. No acute overnight events. Patient reports overall feeling better and improvement in generalized swelling. Patient diagnosed with end-stage renal disease and new onset hemodialysis. Nephrology following and social security assessor working on outpatient chair time. Continue phosphate binders. Patient was also found to have left fifth digit proximal and distal fractures of phalanges. Continue pain management and outpatient orthopedic follow-up. Arrange splint. Patient diagnosed with acute gout flare of bilateral ankles and continue prednisone. Continue steroids for superimposed bacterial pneumonia. Hypertensive emergency resolved and continue antihypertensive regimen for primary hypertension. Troponins down trended most likely secondary to demand ischemia. Continue insulin sliding scale for diabetes mellitus type 2 with Accu-Cheks. Continue to monitor hemoglobin in setting of symptomatic anemia and anemia of chronic disease. Epogen per nephro recommendations. Anticipate discharge in the next 24 to 48 hours if outpatient hemodialysis can be arranged. Continue CPAP at night. Patient updated on the plan and agreement. All questions answered satisfaction. Please see residents note for additional details and management. Dr. Mary MD
[2024-11-29] MEDS: ATORVASTATIN CALCIUM 20 MG TABLET 40 MG PO (21:54)
[2024-11-29] MEDS: INSULIN LISPRO (AdmeLOG) 1 UNIT/0.01 ML UNIT 3 UNIT SC (22:15)
--- NOTE | 2024-11-29 23:53 | ESPR_ITS ---
RE: DILEEP ACOSTA : 1975 DATE OF SERVICE: 11/29/2024 Briefly, he is a 49-year-old -[place] gentleman with type 2 diabetes since 2016 with proteinuria, hypertension, stage V CKD since 05/2024 and now ESRD, who presented to the emergency room on 11/25/2024 with weakness and shortness of breath. He was admitted for initiation of dialysis treatment. Last dialysis was on 11/28/2024, and about 3 L of fluid was removed. He is doing much better and has no specific complaint. He said that his appetite is back and he does not feel short of breath at all. CURRENT MEDICATIONS: 1. Albuterol inhaler. 2. Atorvastatin. 3. Calcitriol. 4. Calcium acetate 1334 mg t.i.d. with meals. 5. Keflex. 6. Hydrocodone p.r.n. 7. Insulin 5 units subcutaneously x1. 8. Lispro 3 units x1. 9. Magnesium. 10. Labetalol 10 mg IV q.2 p.r.n. 11. Nifedipine 30 mg p.o. x1. 12. Protonix 40 mg p.o. daily. 13. Prednisone 20 mg daily. PHYSICAL EXAMINATION: General: He is awake, alert, oriented. Vital Signs: Blood pressure of 164/88. Heart rate of 64. HEENT: Anicteric sclerae. Normocephalic. Neck: Supple. No JVD. Chest and Lungs: Symmetrical expansion. Clear breath sounds. Cardiac: Without murmur. Abdomen: Soft and nontender. Extremities: No edema. LABORATORY DATA: Hemoglobin 9, WBC 8100. Sodium 135, potassium 5.1, chloride 87, CO2 of 34.5, BUN 56, creatinine 7.1, phosphorus 6.5, calcium 8.3, albumin 2.4. ASSESSMENT: 1. End-stage renal disease secondary to diabetic nephropathy and hypertensive nephrosclerosis. 2. Type 2 diabetes. 3. Hypertension. 4. Anemia of chronic kidney disease. 5. Obesity. 6. Hypocalcemia from secondary hyperparathyroidism and hyperphosphatemia, now improved. 7. Slightly elevated troponin level, possibly type 2 ict-RI-[id number] myocardial infarction due to volume overload. PLAN: The patient had dialysis yesterday; about 2 L of fluid was removed. The patient continues to be nonoliguric. Continue calcitriol. Continue calcium acetate 667 mg 2 tablets t.i.d. with meals. The patient will be dialyzed again tomorrow. I will also continue his Retacrit 10,000 units subcutaneously two times a week and add losartan 25 mg p.o. daily for blood pressure control. DT: 23:16:09 TT: 23:51:00 Ref: [id number] - TID: [id number] [facility]
[2024-11-30] VITALS (27 sets, daily range): BP systolic 146–179; BP diastolic 81–109; PULSE 65–86; RESP 13–98; TEMP 36.1–36.8; O2SAT 95–98; BMI 52.5
[2024-11-30 06:42] LABS: Basophils # (Auto) 0.0 Thou/mm3 (0.0-0.2); Basophils % (Auto) 0 % (0-2.5); Eosinophils # (Auto) 0.1 Thou/mm3 (0.0-0.5); Eosinophils % (Auto) 1 % (0-10); Hematocrit 25.4 % (41.0-53.0); Immature Granulocytes Auto 0.10 Thou/mm3 (0.00-0.00); Lymphocytes # (Auto) 0.9 Thou/mm3 (1.0-4.8); Lymphocytes % (Auto) 9 % (10-50); Mean Corpuscular HGB Conc 34.6 g/dl (31.0-37.0); Mean Corpuscular Hemoglobin 29.3 pg (25.0-35.0); Mean Corpuscular Volume 85 fL (80-100); Monocytes # (Auto) 0.6 Thou/mm3 (0.0-0.8); Monocytes % (Auto) 6 % (0-12); Neutrophils # (Auto) 7.8 Thou/mm3 (1.8-7.7); Neutrophils % (Auto) 82 % (37-80); Nucleated Red Blood Cell # 0.00 Thou/mm3 (0.00-0.00); Nucleated Red Blood Cell % 0 /100 WBC (0); Platelet Count 268 Thou/mm3 (140-440); RDW Standard Deviation 38.7 fL (35.1-43.9); Red Blood Count 3.00 Miln/mm3 (4.50-5.90); White Blood Count 9.5 Thou/mm3 (3.8-10.6)
[2024-11-30 06:58] LABS: Hemoglobin 8.8 g/dL (13.5-16.0)
[2024-11-30 07:19] LABS: Alanine Aminotransferase < 7 U/L (10-49); Albumin, Serum 3.3 gm/dL (3.5-5.0); Albumin/Globulin Ratio 1.3 (1.2-2.2); Alkaline Phosphatase 58 U/L (46-116); Anion Gap 15 (7-16); Aspartate Amino Transferase < 10 U/L (0-34); BUN/Creatinine Ratio 9 Ratio (12-20); Bilirubin,Total 0.4 mg/dL (0.3-1.2); Blood Urea Nitrogen 73 mg/dL (9-23); Calcium 8.2 mg/dL (8.3-10.6); Calcium (Corrected) 8.8 mg/dL (8.5-10.1); Carbon Dioxide 23.0 mMol/L (20.0-31.0); Chloride 95 mMol/L (98-107); Creatinine (Component) 8.4 mg/dL (0.6-1.3); Estimated Creatinine Clearance 16.2 mL/min (>60); Globulin 2.5 gm/dL (2.3-3.5); Glucose 303 mg/dL (74-106); Magnesium 2.1 mg/dL (1.6-2.6); Osmolality,Calculated 298 (275-295); Phosphorous 6.5 mg/dL (2.4-5.1); Potassium 4.8 mMol/L (3.4-5.1); Sodium 133 mMol/L (136-145); Total Protein 5.8 gm/dL (5.7-8.2); eGFR 7 See Note
[2024-11-30] MEDS: HYDROcodone/APAP 5/325 TABLET 1 TAB PO (07:54)
[2024-11-30] MEDS: CALCIUM ACETATE 667 MG TABLET 1334 MG PO ×3 (07:55→17:59)
[2024-11-30] MEDS: INSULIN LISPRO (AdmeLOG) 1 UNIT/0.01 ML UNIT 2 UNIT SC ×3 (08:16→18:00)
[2024-11-30] MEDS: INSULIN LISPRO (AdmeLOG) 1 UNIT/0.01 ML UNIT SC ×4 (08:16→20:09)
--- NOTE | 2024-11-30 08:52 | PC.CC ---
Noted Rx sent for Januvia. BASHIR submitted and approved through 11/30/25. Recommend reduce dose to 25mg QD 2/2 HD.
[2024-11-30] MEDS: LOSARTAN POTASSIUM 25 MG TABLET PO (09:08)
--- NOTE | 2024-11-30 11:04 | PC.SS ---
SS called MARI Jacobson to get update on chair time. Per Flori pt switch insurance in September and he is currently out of network but they are working with insurance to get authorization.
--- NOTE | 2024-11-30 14:09 | ESPR_ITS ---
<Statement entered by Soledad Beavers MD - 11/30/24 19:37> Patient was seen and examined at bedside. Pending chair time and insurance authorization. - Patient's plan and care discussed with my attending, Dr. Hallie Beavers MD Internal Medicine PGY-3 Documentation for date of: 11/30/24 Subjective Subjective Interval history: Calcitriol continued and getting 2mg ca acetate with meals. Patient awaiting dialysis chair placement. Received HDS today. Patient examined bedside breathing improved laying flat without respiratory distress. No complaints of chest pain or SOB. Gout flare much improved. Awaiting BM for FOBT Exam Vital Signs Temp Pulse Resp BP Pulse Ox O2 Del Method O2 Flow Rate 97.0 F 73 16 163/91 H 96 Room Air 2 11/30/24 12:00 11/30/24 12:00 11/30/24 12:00 11/30/24 12:00 11/30/24 12:00 11/30/24 12:00 11/30/24 04:00 Narrative Exam GENERAL APPEARANCE: Alert and interactive, follows commands, no acute distress, morbidly obese HEENT: Non-traumatic. PERRL, pale conjunctiva, eyelid no trauma, Mucous membrane moist. NECK: Supple, nontender, no nuchal rigidity. CHEST: No tenderness, no crepitus, no paradoxical movement, no retractions. LUNGS: Clear to ascultation HEART: Regular rate, regular rhythm, no murmur, no gallops. No JVD noted no hepatojugular reflux seen ABDOMEN: Soft, positive bowel sounds, nondistended, no guarding, nontender, no rebound, no masses, NEUROLOGICAL: Gross motor function intact sensory function intact, Appropriate for age. MUSCULOSKELETAL: low back nontender, full range of motion. EXTREMITIES: Nontender, full range of motion. No pitting edema. No R ankle tenderness swelling. L+R foot in ankle brace. SKIN: Color pale, dry, no rash, no lacerations, no abrasions, no contusions. Objective Labs 12/01/24 05:55 12/01/24 05:55 Labs: Laboratory Results - last 24 hr 11/30/24 05:10 WBC 9.5 RBC 3.00 L Hgb 8.8 L Hct 25.4 L MCV 85 MCH 29.3 MCHC 34.6 RDW Std Deviation 38.7 Plt Count 268 D Neut % (Auto) 82 H Lymph % (Auto) 9 L Mcpherson % (Auto) 6 Eos % (Auto) 1 Baso % (Auto) 0 Neut # (Auto) 7.8 H Lymph # (Auto) 0.9 L Mcpherson # (Auto) 0.6 Eos # (Auto) 0.1 Baso # (Auto) 0.0 Immature Gran # (Auto) 0.10 H Absolute Nucleated RBC 0.00 Immature Gran % 1 H Nucleated RBC % 0 Sodium 133 L Potassium 4.8 Chloride 95 L Carbon Dioxide 23.0 Anion Gap 15 BUN 73 H Creatinine 8.4 H* D Estim Creat Clear Calc 16.2 L eGFR 7 L* BUN/Creatinine Ratio 9 L Glucose 303 H Calculated Osmolality 298 H Calcium 8.2 L Corrected Calcium 8.8 Phosphorus 6.5 H Magnesium 2.1 Total Bilirubin 0.4 AST < 10 ALT < 7 L Alkaline Phosphatase 58 Total Protein 5.8 Albumin 3.3 L Globulin 2.5 Albumin/Globulin Ratio 1.3 ABG Interpretation ABG results: 11/26/24 11:43 ABG pH 7.29 L ABG pCO2 30 L ABG pO2 82 L ABG HCO3 14 L ABG O2 Saturation 96 ABG Base Excess -11 L Quality Measures Quality Measures none Assessment & Plan Assessment Current Active Medications: Generic Name Dose Route Start Last Admin Trade Name Freq PRN Reason Stop Dose Admin Acetaminophen 650 mg 11/25/24 17:58 Acetaminophen 325 Mg Tablet PO 12/25/24 17:57 Q6H PRN for fever >100.4 or pain 1-3 Hydrocodone Bitart/Acetaminophen 1 tab 11/28/24 11:23 11/30/24 07:54 Hydrocodone/Apap 5/325 Tablet PO 11/30/24 18:08 1 tab Q8HR PRN Administration PAIN SCALE 4-6 (Moderate Albuterol/Ipratropium 3 ml 11/25/24 18:09 Albuterol/Ipratropium (Duoneb) Rt Beryl 3 Ml Nebu INH 12/25/24 18:59 Q6HRRT PRN sob Atorvastatin Calcium 40 mg 11/25/24 21:00 11/29/24 21:54 Atorvastatin Calcium 20 Mg Tablet PO 12/25/24 20:59 40 mg HS KATHARINA Administration Calcitriol 0.25 mcg 11/27/24 09:00 11/30/24 09:12 Calcitriol 0.25 Mcg Capsule PO 12/27/24 08:59 Not Given QDAY [facility] Calcium Acetate 1,334 mg 11/27/24 12:30 11/30/24 12:00 Calcium Acetate 667 Mg Tablet PO 12/27/24 12:29 1,334 mg TIDWM KATHARINA Administration Cephalexin HCl 500 mg 11/28/24 21:00 11/30/24 09:08 Cephalexin 250 Mg Capsule PO 12/05/24 20:59 500 mg BID KATHARINA Administration Dextrose 25 ml 11/25/24 18:15 Dextrose 50%-Water Inj 50 Ml Syringe IV 12/25/24 18:14 Q15MIN PRN BG 50-70 responsive npo pt Dextrose 50 ml 11/25/24 18:15 Dextrose 50%-Water Inj 50 Ml Syringe IV 12/25/24 18:14 Q15MIN PRN BG <50 OR BG <70 & pt unresponsive Glucagon 1 mg 11/25/24 18:15 Glucagon Inj 1 Mg Vial IM Q15MIN PRN BG <70, and no IV access Heparin Sodium (Porcine) 4,100 unit 11/26/24 12:39 11/27/24 11:22 Heparin Sod Inj 1000 Unit/Ml Vial 10 Ml INDWELLCAT 12/10/24 12:38 4,100 unit PRN PRN Administration DIALYSIS Albumin Human 25 gm in 100 mls @ 100 mls/min 11/26/24 12:39 Albuminar-25 Ivpb IV PRN PRN DIALYSIS Insulin Degludec 5 unit 11/30/24 09:00 11/30/24 09:13 Insulin Degludec 5 Unit/0.05 Ml (Per 5 Units) TX 12/30/24 08:59 Not Given QDAY [facility] Insulin Human Lispro 0 unit 11/25/24 21:00 11/30/24 12:01 Insulin Lispro (Admelog) 1 Unit/0.01 Ml Unit SC 12/25/24 20:59 3 unit ACHS [facility] Administration Protocol Insulin Human Lispro 2 unit 11/29/24 11:30 11/30/24 12:00 Insulin Lispro (Admelog) 1 Unit/0.01 Ml Unit SC 12/29/24 11:29 2 unit AC [facility] Administration Iron Sucrose 100 mg 11/27/24 09:00 11/30/24 09:13 Iron Sucrose Cplx Inj 20 Mg/Ml Vial 5 Ml IVP 12/06/24 08:59 Not Given DAILY KATHARINA Labetalol HCl 10 mg 11/25/24 18:24 11/28/24 05:17 Labetalol Inj 5 Mg/Ml Vial 20 Ml IVP 12/25/24 18:29 10 mg Q2H PRN Administration SBP above 180 Losartan Potassium 25 mg 11/30/24 07:30 11/30/24 09:14 Losartan Potassium 25 Mg Tablet PO 12/30/24 07:29 Not Given QDAY KATHARINA Pantoprazole Sodium 40 mg 11/27/24 09:00 11/30/24 09:14 Pantoprazole 40 Mg Tablet PO 12/27/24 08:59 Not Given QDAY KATHARINA Protocol Prednisone 20 mg 11/28/24 14:30 11/30/24 09:14 Prednisone 20 Mg Tablet PO 12/04/24 14:29 Not Given QDAY KATHARINA Sennosides 1 tab 11/25/24 17:58 11/28/24 18:05 Senna Tablet PO 12/25/24 17:57 1 tab QDAY PRN Administration constipation Protocol Plan 49 male patient with significant history of DM2(not on insulin), hypertension, chronic kidney disease, not taking any medication, came in for evaluation regarding worsening shortness of breath, dyspnea on exertion, dizziness, palpitation especially on exertion and activity. Patient was volume overloaded most likely 2/2 to delay in HDS needed for ESRD as evidenced by his renal panel. Also f/t/h PNA on CXR also evidenced by B symptoms on HPI and physical exam. Dialysis initiated, diuresed, electrolyte management of ESRD, and abx for PNA. pRBCs initally held due to vol overload status despite hgb:6. Given 2 units pRBCs following HDS. Dialysis day 2 given 1 unit pRBCs. No RBCs given Day3 of dialysis. Improved overall symptoms BP 159/87, sputum culture klebsiella +. Patient much improved, just waiting dialysis chair placement. HDS done today. #Hyperglycemia resolving #most likely 2/2 steroid use #T2DM (Non-insulin) Bedside glucose: 414 at midnight 5 units lispro given now 279. Elevation most likely due to recent prednisone use. Plan: -Bedside glucose -ISS, Degludec 5 units, 2 units lispro SC AC -D50 prn hypoglycemia #Acute on chronic anemia #Anemia of chronic disease #Low iron, high/normal ferritin, low TIBC, low transferrin, low saturation Patient at baseline has low hemoglobin. Hyperuricemia could be causing oxidative stress, could be 2/2 to vol. overload status diluting blood less likley because other blood markers (other than RBC, HCG, HCT) did not dilute, most likely some form of inflam anemia due to chronic Dz (normal ferritin, low iron). pRBCs given , 3 units total. Hemoglobin now stable at 8.8 DDx: GI Bleed, Cancer, chronic anemia, medication induced FOBT: Awaiting BM for test, nurse missed FOBT on passed BMs. NSAID use: Unsure Blood thinner use:Unsure Hgb 6.7 --> 8.1 --> 9.0 --> 8.8; improved Plan: ? Trend CBC ? Iron studies panel with ferritin; Iron: 18 (low), TIBC: 218 (low), Sat: 8 (low), Unsat: 200 (low), ferritin: 147 (normal) ? Reticulocyte Count: Abs: 23.5, Immature: 9.5% Retic Hgb: 29.6 ? Peripheral blood smear: Retic abs: 23.5 ? Transfusion protocol hemoglobin below 7 ? SCDs ? Protonix 40 mg daily - Dr. Aaron: Retacrit 10,000 units 2x week #ESRD #Acute kidney injury on CKD - on HDS x4 #Hyperuricemia #Secondary Hyperparathyroidism - Improving #Anion gap metabolic acidosis - Resolving #Hyponatremia- asymptomatic Most likely due to ESRD without dialysis. 4x dialysis, will recheck labs in the morning following 4th session of dialysis today. BUN: 73, Cr: 8.4. Today anion gap is 15, Phosphorous is 6.5 improved from 8.5 and Ca: 8.2 from 6.7. Initial PTH: 490. Mild hyponatermia is asymptomatic and most likely 2/2 ESRD. Plan: ?Nephrology (Dr. Aaron) consulted, appreciate recs -Ca acetate 667 TID -D3 MWF -Once BPs lower transfuse pRBCs -Inpatient dialysis x3days in a row then transition to outpatient ?Strict I's and O's ?Lasix 40 mg IV ?Sodium Bicarb 50 mL x1 ?Renal panel 1999 ?IR dialysis cath tomorrow with HD ?Calcium gluconate 1 g and Albuterol x1 #Hypertensive emergency Initial BP: 191/93 in ED. 10mg hydralazine given in ED. Currently 170/92. SOB w/ +2 pitting edema. Most likely 2/2 vol overload Plan: ? Do not correct systolic blood pressure more than 25% within the first 24 hours ? Labetalol 10 mg IV Q2H PRN for SBP above 180, hold if HR is below 65 - Nifedpine 30mg can also be given - Dr. Aaron added: Losartan 25 mg PO, and albumin (prevent refractory volume overload) #Elevated troponins ).072 --> 0.07 --> 0.072 Slightly elevated, likely demand ischemia NSTEMI type II Plan: Troponin at 2000 #CHF Unsure if it is reduced Lead Press Operator is Dr. Parham Plan: ?Echo ?Telemetry #Pulmonary congestion #PNA r/o Orignally worked up for PNA. PNA considered b/c patient had viral symptomatology of SOB and cough. ED CXR: diffuse significant LL lung PNA. Crackles in left lung base on physical. patient had viral symptomatology of SOB and cough. Sputum culture: Klebsiella positive Plan: -Keflex 500 BID -Aizthro 500mg PO QD - DC -Augmentin - DC -TB skin test - Negative -Flu/covid screen -Sputum culture and gram stain: Klebsiella #UTI - resolved WBC: 20 Plan: -Cross coverage of PNA tx augmentin + Azithro #Hypercholesterolemia Cholesterol: 236, LDL: 182, HDL: 32 Plan: -Continue 40mg PO HS #Right ankle pain - improved #most likely 2/2 acute gout flare #or R ankle sprain Patient has history of R ankle fracture s/p surgery s/p pin removal sx. No recent history of trauma to the ankle. XRAY: suspicious for fractures proximal and distal phalanges 5th digit on Left foot. Patient reports hx of acute gout flare ups with worsening kidney function. Plan: -Colchicine given -Narco QHRs PRN -Prednisone 20mg for 7 days Health Maintenance: DVT prophylaxis: SCDs Diet: Carb consistent Zimmerman: None Lines: PIV Supplemental O2: Nasal cannula CODE STATUS: Full Disposition: Admitted to the hospital for HDS, fluid overload and likely PNA Patient seen and reviewed with attending Dr. Sterling and supervising resident Dr. Beavers. Note written by Dennis Alexandra MD PGY-1 Attending Provider Attestation/Addendum I have discussed and was present for the essential components of the history, physical examination, diagnosis, and treatment plan with the resident. I agree with the patient's care as documented by the resident and amended herein by me. Jacob Sterling DO. Although this document has been carefully reviewed, there may still be some phonetic and other typographical errors. These errors are purely grammatical due to imperfections in the software program and should not be construed in any way to compromise the substance of the patient's medical care during this visit.
[2024-11-30] MEDS: EPOETIN ALFA-EPBX INJ 10,000 UNIT/ML VIAL (ESRD) 10000 UNIT SC (14:51)
[2024-11-30] MEDS: HEPARIN SOD INJ 1000 UNIT/ML VIAL 10 ML 4100 UNIT INDWELLCAT (17:03)
[2024-11-30] MEDS: ATORVASTATIN CALCIUM 20 MG TABLET 40 MG PO (20:09)
[2024-12-01] VITALS (7 sets, daily range): BP systolic 157–176; BP diastolic 92–105; PULSE 62–88; RESP 14–18; TEMP 36.1–36.6; O2SAT 92–97
[2024-12-01 06:08] LABS: Basophils # (Auto) 0.1 Thou/mm3 (0.0-0.2); Basophils % (Auto) 1 % (0-2.5); Eosinophils # (Auto) 0.4 Thou/mm3 (0.0-0.5); Eosinophils % (Auto) 4 % (0-10); Hematocrit 27.3 % (41.0-53.0); Hemoglobin 8.9 g/dL (13.5-16.0); Immature Granulocytes Auto 0.25 Thou/mm3 (0.00-0.00); Lymphocytes # (Auto) 1.6 Thou/mm3 (1.0-4.8); Lymphocytes % (Auto) 20 % (10-50); Mean Corpuscular HGB Conc 32.6 g/dl (31.0-37.0); Mean Corpuscular Hemoglobin 28.2 pg (25.0-35.0); Mean Corpuscular Volume 86 fL (80-100); Monocytes # (Auto) 0.7 Thou/mm3 (0.0-0.8); Monocytes % (Auto) 9 % (0-12); Neutrophils # (Auto) 5.0 Thou/mm3 (1.8-7.7); Neutrophils % (Auto) 63 % (37-80); Nucleated Red Blood Cell # 0.00 Thou/mm3 (0.00-0.00); Nucleated Red Blood Cell % 0 /100 WBC (0); Platelet Count 290 Thou/mm3 (140-440); RDW Standard Deviation 39.4 fL (35.1-43.9); Red Blood Count 3.16 Miln/mm3 (4.50-5.90); White Blood Count 7.9 Thou/mm3 (3.8-10.6)
[2024-12-01 06:35] LABS: Alanine Aminotransferase 13 U/L (10-49); Albumin, Serum 3.3 gm/dL (3.5-5.0); Albumin/Globulin Ratio 1.4 (1.2-2.2); Alkaline Phosphatase 55 U/L (46-116); Anion Gap 11 (7-16); Aspartate Amino Transferase 16 U/L (0-34); BUN/Creatinine Ratio 9 Ratio (12-20); Bilirubin,Total 0.4 mg/dL (0.3-1.2); Blood Urea Nitrogen 58 mg/dL (9-23); Calcium 8.3 mg/dL (8.3-10.6); Calcium (Corrected) 8.9 mg/dL (8.5-10.1); Carbon Dioxide 26.9 mMol/L (20.0-31.0); Chloride 99 mMol/L (98-107); Creatinine (Component) 6.8 mg/dL (0.6-1.3); Estimated Creatinine Clearance 20.0 mL/min (>60); Globulin 2.3 gm/dL (2.3-3.5); Glucose 185 mg/dL (74-106); Magnesium 2.0 mg/dL (1.6-2.6); Osmolality,Calculated 295 (275-295); Phosphorous 5.3 mg/dL (2.4-5.1); Potassium 4.8 mMol/L (3.4-5.1); Sodium 137 mMol/L (136-145); Total Protein 5.6 gm/dL (5.7-8.2); eGFR 9 See Note
[2024-12-01] MEDS: CALCIUM ACETATE 667 MG TABLET 1334 MG PO ×2 (07:23→11:24)
[2024-12-01] MEDS: INSULIN LISPRO (AdmeLOG) 1 UNIT/0.01 ML UNIT SC ×2 (07:23→11:27)
[2024-12-01] MEDS: INSULIN LISPRO (AdmeLOG) 1 UNIT/0.01 ML UNIT 2 UNIT SC ×2 (07:24→11:26)
[2024-12-01] MEDS: PANTOPRAZOLE 40 MG TABLET PO (08:46)
[2024-12-01] MEDS: LOSARTAN POTASSIUM 25 MG TABLET 50 MG PO (08:47)
[2024-12-01] MEDS: INSULIN DEGLUDEC 5 UNIT/0.05 ML (PER 5 UNITS) SC (08:48)
[2024-12-01] MEDS: IRON SUCROSE CPLX INJ 20 MG/ML VIAL 5 ML 100 MG IVP (08:53)
--- NOTE | 2024-12-01 09:10 | PC.SS ---
SS followed up with Lucía Andersen who stated they are still pending insurance authorization
--- NOTE | 2024-12-01 11:19 | PC.SS ---
SS received a call from Ghada Andersen who stated pt insurance is out of network and although they were trying to work with insurance for out of network benefits, the pt does not possess out of network benefits. Ghada advised SS to submit to [facility] in [place] as they accept the pts insurance. Later down the line if pt wishes to switch insurance that is an option and Dr. Aaron will speak to the pt once established at [facility]
--- NOTE | 2024-12-01 12:48 | PC.SS ---
SS spoke to pt at bedside in regards to Cyrus Chair, pt is open to anything available. SS submitted information requested via [employer].
--- NOTE | 2024-12-01 13:42 | ESDS_ITS ---
Planned Discharge Date 12/01/24 DS: Providers Provider Date of admission: 11/25/24 17:58 Primary care physician: Martin Velasquez MD Admitting Provider: Delroy Sterling DO Attending Provider on Admission: Delroy Sterling DO Consults: 11/25/24 16:56 Consult to Nephrology Stat Comment: ESRD Consulting Provider: Julisa Aaron Attending Provider on DC: Delroy Sterling DO Discharging Provider: Delroy Sterling DO DS: Diagnosis Problem List Completed Was Problem List Reviewed/Reconciled?: Yes Hospital Course Hospital Course Hospital course: 49 male patient with significant history of DM2(not on insulin), hypertension, chronic kidney disease, not taking any medication, came in for evaluation regarding worsening shortness of breath, dyspnea on exertion, dizziness, palpitation especially on exertion and activity. Admitted for dialysis initiation and fluid overload management. In the ED patient hypertensive BP: 191/93, with viral symptoms an AVIS, hyperuricemic, anemic, with ESRD and secondary hyperparathyroidism, anion gap metabolic acidosis. In the hospital He was started on dialysis x4. Volume overload resolved. and 3 units of pRBCs given which resolved his anemia. Sputum cx came back klebsiella +, treated with keflex. Patient had acute gout flare treated with prednisone. patient discharged once dialysis chair placement found and HTN resolved. Discharge Instructions: ? Follow-up with your PCP within 1 week from discharge ? Follow-up with the kidney doctor Dr Aaron within 1 week from discharge ? Continue dialysis as per your schedule - We increased your BP medication Losartan to 50mg PO daily. Follow up with your pcp regarding adjusting your blood pressure meds according your blood pressure reads at home ? In case of worsening of your symptoms please return to the ED as soon as possible ? Use medications as prescribed ? Your blood sugar medication need to be followed up closely and to be adjusted accordingly. Chair Time: //SAT 0400 First Chair tomorrow 12/02 a 0400 #Hyperglycemia resolving #most likely 2/2 steroid use #T2DM (Non-insulin) #Acute on chronic anemia #Anemia of chronic disease #Low iron, high/normal ferritin, low TIBC, low transferrin, low saturation #ESRD #Acute kidney injury on CKD - on HDS x4 #Hyperuricemia #Secondary Hyperparathyroidism - Improving #Anion gap metabolic acidosis - Resolving #Hyponatremia- asymptomatic #Hypertensive emergency #Elevated troponins ).072 --> 0.07 --> 0.072 #CHF #Pulmonary congestion #PNA r/o #UTI - resolved #Hypercholesterolemia #Right ankle pain - improved #most likely 2/2 acute gout flare #or R ankle sprain Patient's plan and care discussed with my attending, Dr. Sterling, and supervising residents Soledad Beavers MD, and MD Dennis Tirado MD Internal Medicine PGY-1 Time Spent with Patient Time attestation: Total time spent providing and/or coordinating discharge services: Time spent: Greater than 30 minutes Exam Vital Signs Temp Pulse Resp BP Pulse Ox O2 Del Method O2 Flow Rate 97.4 F 70 18 157/92 H 92 L Room Air 2 12/01/24 12:00 12/01/24 12:00 12/01/24 12:00 12/01/24 12:00 12/01/24 12:00 12/01/24 12:00 11/30/24 04:00 Narrative Exam GENERAL APPEARANCE: Alert and interactive, follows commands, no acute distress, morbidly obese HEENT: Non-traumatic. PERRL, pale conjunctiva, eyelid no trauma, Mucous membrane moist. NECK: Supple, nontender, no nuchal rigidity. CHEST: No tenderness, no crepitus, no paradoxical movement, no retractions. LUNGS: Clear to ascultation HEART: Regular rate, regular rhythm, no murmur, no gallops. No JVD noted no hepatojugular reflux seen ABDOMEN: Soft, positive bowel sounds, nondistended, no guarding, nontender, no rebound, no masses, NEUROLOGICAL: Gross motor function intact sensory function intact, Appropriate for age. MUSCULOSKELETAL: low back nontender, full range of motion. EXTREMITIES: Nontender, full range of motion. No pitting edema. No R ankle tenderness swelling. L+R foot in ankle brace. SKIN: Color pale, dry, no rash, no lacerations, no abrasions, no contusions. Discharge Plan Plan Patient Disposition: HOME (Self Care) Patient condition on transfer: Stable and Benefits outweigh risks Care Plan Goals: Discharge instructions ? Follow-up with your PCP within 1 week from discharge ? Follow-up with the kidney doctor Dr Aaron within 1 week from discharge ? Continue dialysis as per your schedule - We increased your BP medication Losartan to 50mg PO daily. Follow up with your pcp regarding adjusting your blood pressure meds according your blood pressure reads at home ? In case of worsening of your symptoms please return to the ED as soon as possible ? Use medications as prescribed ? Your blood sugar medication need to be followed up closely and to be adjusted accordingly. Chair Time: /SAT 0400 First Chair tomorrow 12/02 a 0400 Prescriptions/Referrals Prescriptions/Med Rec: New atorvastatin 40 mg tablet 40 mg PO QPM 7 Days Qty: 7 0RF calcitriol 0.25 mcg Capsule 0.25 mcg PO QDAY 7 Days Qty: 7 0RF calcium acetate 667 mg tablet 1,334 mg PO TID 7 Days Qty: 42 0RF furosemide 40 mg tablet 40 mg PO QAM 7 Days Qty: 7 0RF Januvia 25 mg tablet 25 mg PO QDAY 14 Days Qty: 14 0RF losartan 25 mg Tablet 50 mg PO QDAY 7 Days Qty: 14 0RF Continued carvedilol 25 mg Tablet 25 mg PO QDAY Veltassa 8.4 gram Powder In Packet 16.8 g PO 2 X WEEKLY Qty: 30 0RF calcium acetate(phosphat bind) 667 mg capsule 1,334 mg PO TID Patient Comments: 2 CAPSULE WITH MEALS ORALLY THREE TIMES A DAY 30 DAYS ferrous sulfate 325 mg (65 mg iron) tablet 325 mg PO DAILY Patient Comments: TAKE 1 TABLET BY MOUTH THREE TIMES A DAY FOR 30 DAYS Discontinued amlodipine 10 mg tablet 10 mg PO QDAY Qty: 30 0RF losartan 25 mg tablet 25 mg PO DAILY Patient Comments: TAKE 1 TABLET BY MOUTH EVERY DAY FOR 30 DAYS calcitriol 0.5 mcg capsule 0.5 mcg PO .3xweekly Patient Comments: 1 CAPSULE BY MOUTH THREE TIMES A WEEK rosuvastatin 20 mg tablet 20 mg PO DAILY Patient Comments: TAKE 1 TABLET BY MOUTH EVERY DAY FOR 30 DAYS metolazone 5 mg tablet 5 mg PO DAILY dapagliflozin propanediol [Farxiga] 5 mg tablet 5 mg PO QDAY Referrals: Martin Velasquez MD [Primary Care Provider] - Patient/Caregiver Discharge Instructions Discharge Activity: activity as tolerated Education Materials: Anemia and Kidney Disease, Acute Kidney Failure Dc, ED Hemodialysis Print Language: Occitan Stand Alone Forms: Alanna Award Info., Patient Portal Info Letter Discharge Order Discharge Orders: Discharge (Routine); Ordered 12/01/24 Ordered By: Reji Duke Quality Discharge Quality Measures VTE prophylaxis Attestestation MD Attestation I have discussed and was present for the essential components of the discharge history, physical examination, diagnosis, and discharge treatment plan with the resident. I agree with the patient's discharge care as documented by the resident and amended herein by me. Jacob Sterling DO. The patient understood all discharge instructions, all questions were answered satisfactorily. The patient was instructed to return to the Emergency Departm ent is symptoms worsened or persisted. HD chair authorization obtained, patient was stable, afebrile, tolerating p.o. intake at time of discharge home. Although this document has been carefully reviewed, there may still be some phonetic and other typographical errors. These errors are purely grammatical due to imperfections in the software program and should not be construed in any way to compromise the substance of the patient's medical care during this visit.
--- NOTE | 2024-12-01 13:50 | PC.SS ---
SS spoke to Ghada at [facility] who apologized for the mix up but they were able to accommodate pt. Chair Time: /Fri First Chair tomorrow 12/02 a 399 SS provided information printed to pt. who is very pleased to be DC today as he has a at 1600. SS updated Esther PADRON who is covering for NEREIDA Gamboa
== END 2024-12-01 16:00 | disposition home or self-care (01) | DRG 291 ==
LOC: SERX 14:07 → SERHOLD 17:59 → S2NX 20:47
PROVIDERS: Internal Medicine; Internal Medicine Nephrology; Nurse Practitioner Primary Care; Admitting Provider Student in an Organized Health Care Education/Training Program; Emergency Provider Family Medicine; PCP Internal Medicine; Visit Provider Student in an Organized Health Care Education/Training Program
DX: I13.2 Hypertensive heart and chronic kidney disease with heart failure and with stage 5 chronic kidney disease, or end stage renal disease (principal); J15.9 Unspecified bacterial pneumonia; N18.6 End stage renal disease; D62 Acute posthemorrhagic anemia; I16.1 Hypertensive emergency; N39.0 Urinary tract infection, site not specified; Z68.43 Body mass index [BMI] 50.0-59.9, adult; N17.9 Acute kidney failure, unspecified; E87.1 Hypo-osmolality and hyponatremia; E87.20 Acidosis, unspecified; N25.81 Secondary hyperparathyroidism of renal origin; E11.22 Type 2 diabetes mellitus with diabetic chronic kidney disease; I50.9 Heart failure, unspecified; E87.5 Hyperkalemia; E66.9 Obesity, unspecified; D63.1 Anemia in chronic kidney disease; E11.65 Type 2 diabetes mellitus with hyperglycemia; E78.00 Pure hypercholesterolemia, unspecified; E83.51 Hypocalcemia; E83.39 Other disorders of phosphorus metabolism; M10.9 Gout, unspecified; R09.89 Other specified symptoms and signs involving the circulatory and respiratory systems; S93.401A Sprain of unspecified ligament of right ankle, initial encounter; Z79.4 Long term (current) use of insulin; Z79.899 Other long term (current) drug therapy; Z99.2 Dependence on renal dialysis
CPT/HCPCS: 36415; 36600; 71046; 73630; 76937; 77001; 80053; 80061; 80069; 80074; 80307; 81001; 82728; 82803; 83540; 83550; 83735; 83970; 84100; 84443; 84484; 84550; 85014; 85018; 85025; 85046; 85610; 85730; 86580; 86703; 86705; 86706; 86850; 86900; 86901; 86923; 87040; 87077; 87086; 87186; 87205; 87340; 87400; 87811; 93005; 96365; 96374; 96375; 99152; 99284; C1750; C1894; J0613; J1642; J1643; J1756; J1815; J1938; J2470; J3010; J3475; J3490; J7050; J7060; J7512; P9016; Q5105; A9270; J1920

== ENCOUNTER → 2025-04-04 | Outpatient (CLI) | payer MEDICARE, MEDICAID, SELFPAY ==
[2025-04-04 12:02] LABS: Prostate Specific Antigen 0.74 ng/mL (0-4.00)
== END | disposition home or self-care (01) ==
LOC: COPL 10:01
PROVIDERS: PCP Internal Medicine; Referring Provider Internal Medicine; Visit Provider Internal Medicine
DX: Z12.5 Encounter for screening for malignant neoplasm of prostate (principal)
CPT/HCPCS: 36415; 84153